=== PATIENT | male | born 1950 | race Caucasian/White ===

== ENCOUNTER 2018-02-03 00:01 | Inpatient (IN) ==
[2018-02-03] MEDS ORDERED: fentaNYL 10 mcg/mL Premix Drip 2,500 MCG/250 ML BAG IV.SIG PRN (04:43)
[2018-02-03] MEDS ORDERED: Acetaminophen 325 MG Tablet PO PRN (04:43)
[2018-02-03] MEDS ORDERED: Bisacodyl 10 MG Supp RECTAL PRN (04:43)
[2018-02-03] MEDS ORDERED: Midazolam 100 MG/100 ML Inj 100 MG/100 ML BAG IV.CONT PRN (04:43)
[2018-02-03] MEDS ORDERED: Vancomycin Consult Pharmacy OTHER PRN (04:48)
--- NOTE | 2018-02-03 04:53 | P.HPCC ---
History of Present Illness Primary Care Physician: UNKNOWN History of Present Illness: 67 unfortunate male who was brought via [facility] for vomiting to freestanding emergency department at [place]. According to [facility], the patient's brother called because patient has been having vomiting for the last 3days. When [facility] arrived in the patient was on bed, with low oxygen saturation, they put him on CPAP and brought into the ER. On arrival to the ER the patient was AMS, unable to give any history, no family at the bedside to give any information. The patient was intubated for airway protection by ED attending, the central line was placed into the femoral vein and the patient was started on IV fluid bolus resuscitation as well as antibiotics. He is being transferred to [facility] for higher level of care and critical care management. Inpatient Certification: I certify that the inpatient services were ordered in accordance with Medicare regulations governing the order. This includes certification that hospital inpatient services are reasonable and necessary and in the case of services not specified as inpatient-only under 42 CFR 419.22(n), that they are appropriately provided as inpatient services in accordance to with the 2-midnight benchmark under 43 CFR 412.3(e) Estimated Total Length of Stay (Days): 5 Plans for Post Hospital Care: Not yet determined Review of Systems unobtainable due to endotracheal tube PMFSH - History History Provided By: Conveyor Loader / EMT - Medical / Surgical Hx Neg / Unobtainable Medical Problems Denied: Unable to Obtain Surgical History: Unable to Obtain - Tobacco History Smoking Status: Unknown if ever smoked - Alcohol History How Often Do You Have a Drink Containing Alcohol: Unable to Obtain Medications and Allergies Active Medications: Active Medications Acetaminophen (Tylenol) 650 mg PO Q6H PRN PRN Reason: PAIN 1-10 AND/OR FEVER >101F Al Hydroxide/Mg Hydroxide (Milk Of Magnjoseph Liq) 30 ml PO Q12H PRN PRN Reason: Mild Constipation Albuterol (Duoneb Neb (Prn)) 1 ampul NEB Q2HR NEB PRN PRN Reason: WHEEZING Bisacodyl (Dulcolax Supp) 10 mg RECTAL DAILY PRN PRN Reason: SEVERE CONSITIPATION Chlorhexidine Gluconate (Peridex 0.12% Oral Kit) 15 ml OROPHARYNG BID@0800, 2000 [facility] Chlorhexidine Gluconate (Chlorhexidine 2% Cloth) 3 pack TOPICAL DAILY@0400 [facility] Stop: 02/09/18 03:59 Chlorhexidine Gluconate (Chlorhexidine 2% Cloth) 3 pack TOPICAL DAILY@0400 PRN PRN Reason: Extra cloth needed Stop: 02/09/18 03:59 Famotidine (Pepcid) 20 mg PO BID [facility] Famotidine (Pepcid Pf Inj) 20 mg IV.PUSH Q12HR JHONNY Famotidine (Pepcid Pf Inj) 20 mg IV.PUSH Q12HR [facility] Heparin Sodium (Porcine) (Heparin Inj) 5,000 units SQ Q8H [facility] Fentanyl (Fentanyl 10 Mcg/Ml Premix Drip) 2,500 mcg in 250 mls @ 5 mls/hr IV.SIG TITRATE PRN; Protocol PRN Reason: Per Protocol Midazolam HCl (Versed Inj) 100 mg in 100 mls @ 2 mls/hr IV.CONT TITRATE PRN; Protocol PRN Reason: See protocol Sodium Chloride (Ns Inj) 1,000 mls @ 154 mls/hr IV.CONT .Q6H30M [facility] Piperacillin/Tazobactam/Dextrose (Zosyn 4.5 Gm Premix) 4.5 gm in 100 mls @ 200 mls/hr IV.SIG Q6H JHONNY Sodium Chloride (Ns Inj) 1,000 mls @ 2,000 mls/hr IV.SIG Q30M [facility] Stop: 02/03/18 05:59 Lactulose (Lactulose Liq) 30 ml PO DAILY PRN PRN Reason: SEVERE CONSITIPATION Miscellaneous Medication () 1 each OROPHARYNG 0000,0400,1200,1600 [facility] Ondansetron HCl (Zofran Inj) 4 mg IV.PUSH Q6H PRN PRN Reason: NAUSEA OR VOMITING Pharmacy Profile Note (Vancomycin Consult Pharmacy) 1 each OTHER UNSCH PRN PRN Reason: Pharmacy to dose Senna/Docusate Sodium (Sonia-Colace) 1 tab PO BID [facility] Sennosides (Senokot) 17.2 mg PO Q12H PRN PRN Reason: Moderate Constipation Sodium Chloride (Ns Flush) 2 ml IV.FLUSH BID [facility] Sodium Chloride (Ns Flush) 2 ml IV.FLUSH PRN PRN PRN Reason: FLUSH AFTER USING IV ACCESS Allergies Allergy/AdvReac Type Severity Reaction Status Date / Time No Known Allergies Allergy Verified 12/09/18 00:53 Home Medications Medication Instructions Recorded Confirmed Type Unable to Obtain Home Meds 02/03/18 02/03/18 History Exam Vital signs: Intake & Output 02/02/18 02/02/18 02/03/18 06:59 18:59 06:59 Weight 76.1 kg Other: Weight On Admission 76.1 kg - Constitutional moderate distress, cachectic, chronically ill appearing, disheveled - Routine HEENT Exam Head: Present: normocephalic, atraumatic Eye: Present: PERRL ENT: Present: mucous membranes dry - Routine Neck Exam Present: supple, full ROM. Absent: JVD, carotid bruit - Routine Respiratory Exam Present: patient mechanically ventilated, rales. Absent: accessory muscle use, respiratory distress, rhonchi - Routine Cardiovascular Exam Present: RRR, S1, S2 - Routine Abdominal Exam Present: soft, normoactive bowel sounds. Absent: tenderness, distended - Routine Extremities Exam Absent: cyanosis, clubbing, edema - Routine Skin Exam Present: intact. Absent: cyanosis, erythema - Routine Neurological Exam Present: altered mental status Septic Shock Reassessment Septic shock perfusion: reassessment completed Caprini VTE Risk Assessment Caprini VTE Risk Assessment: Moderate/High Risk (score >= 2) Caprini Risk Assessment Model: Point Value = 1 Point Value = 2 Point Value = 3 Point Value = 5 Age 41-60 Minor surgery BMI > 25 kg/m2 Swollen legs Varicose veins or History of unexplained or recurrent spontaneous Oral contraceptives or hormone replacement Sepsis (< 1 month) Serious lung disease, including pneumonia (< 1 month) Abnormal pulmonary function Acute myocardial infarction Congestive heart failure (< 1 month) History of inflammatory bowel disease Medical patient at bed rest Age 61-74 Arthroscopic surgery Major open surgery (> 45 min) Laparoscopic surgery (> 45 min) Malignancy Confined to bed (> 72 hours) Immobilizing plaster cast Central venous access Age >= 75 History of VTE Family history of VTE Factor V Leiden Prothrombin [id number] Lupus anticoagulant Anticardiolipin antibodies Elevated serum homocysteine Heparin-induced thrombocytopenia Other congenital or acquired thrombophilia Stroke (< 1 month) Elective arthroplasty Hip, pelvis, or leg fracture Acute spinal cord injury (< 1 month) Prophylaxis Regimen: Total Risk Factor Score Risk Level Prophylaxis Regimen 0-1 Low Early ambulation 2 Moderate Order ONE of the following: *Sequential Compression Device (SCD) *Heparin 5000 units SQ BID 3-4 Higher Order ONE of the following medications: *Heparin 5000 units SQ TID *Enoxaparin/Lovenox 40 mg SQ daily (WT < 150 kg, CrCl > 30 mL/min) *Enoxaparin/Lovenox 30 mg SQ daily (WT < 150 kg, CrCl > 10-29 mL/min) *Enoxaparin/Lovenox 30 mg SQ BID (WT < 150 kg, CrCl > 30 mL/min) AND/OR *Sequential Compression Device (SCD) 5 or more Highest Order ONE of the following medications: *Heparin 5000 units SQ TID (Preferred with Epidurals) *Enoxaparin/Lovenox 40 mg SQ daily (WT < 150 kg, CrCl > 30 mL/min) *Enoxaparin/Lovenox 30 mg SQ daily (WT < 150 kg, CrCl > 10-29 mL/min) *Enoxaparin/Lovenox 30 mg SQ BID (WT < 150 kg, CrCl > 30 mL/min) AND *Sequential Compression Device (SCD) Assessment and Plan - Assessment and Plan Plan: Respiratory failure -SIRS/sepsis -Intubated for airway protection -Mechanical ventilation -No weaning until hemodynamically stable -DuoNeb's as needed scheduled -Vent bundle Sepsis -Unclear source/possibly urosepsis -Aggressive IV fluids hydration -Levophed and vasopressin as needed to keep map above 65 -Broad-spectrum antibiotic -Follow-up cultures Nausea vomiting -IV fluid hydration -Zofran PRN Acute kidney injury -IV fluid hydration -Strict I's and O's -Creatinine electrolyte levels -Ultrasound kidneys to rule out obstruction DVT GI prophylaxis -Teds SCDs -Subcu heparin -IV Pepcid 35 minutes of critical care H&P: Quality - VTE Deep Vein Thrombosis/Pulmonary Embolism Present on Admission: No
[2018-02-03] MEDS: Sod Chloride 0.9% Inj 1,000 ML IV.SIG SCH ×2 (05:29→06:57)
[2018-02-03] MEDS: Heparin - SQ 10,000 UNITS/ML Vial SQ SCH ×3 (05:31→22:34)
[2018-02-03 05:33] LABS: Baso % (Auto) 0.1 % (0.0-2.0); Hematocrit 28.9 % (39.0-51.0); Hemoglobin 9.6 gm/dL (13.0-17.0); Lymph # (Auto) 1.3 th/mm3 (1.0-4.8); Lymph % (Auto) 6.9 % (9.0-44.0); Mean Corpuscular HGB Conc 33.2 % (32.0-36.0); Mean Corpuscular Hemoglobin 30.9 pg (27.0-34.0); Mean Corpuscular Volume 92.9 fL (80.0-100.0); Mean Platelet Volume 8.1 fL (7.0-11.0); Mono # (Auto) 0.8 th/mm3 (0.0-0.9); Neut # (Auto) 16.8 th/mm3 (1.8-7.7); Platelet Count 307 th/mm3 (150-450); Red Blood Count 3.11 mil/mm3 (4.50-5.90); Red Cell Distribution Width 13.1 % (11.6-17.2); White Blood Count 18.9 th/mm3 (4.0-11.0)
[2018-02-03] MEDS ORDERED: Vasopressin Inj 40 UNIT in Sodium Chlor 0.9% Inj 98 ML IV.CONT SCH (06:00)
[2018-02-03] MEDS ORDERED: Vancomycin Inj 1,000 MG in Sodium Chlor 0.9% Inj 250 ML IV.SIG ONE (06:00)
[2018-02-03 06:10] LABS: ABG Base Excess 0.8 mmol/L (-2-2); ABG PCO2 26 mmHg (38-42); ABG PO2 177 mmHG (61-120)
[2018-02-03 06:38] LABS: Carbon Dioxide 25.9 meq/L (21.0-32.0); Potassium 3.2 meq/L (3.5-5.1)
[2018-02-03 06:39] LABS: Albumin 2.3 g/dL (3.4-5.0); Calcium 6.8 mg/dL (8.5-10.1); Magnesium 1.6 mg/dL (1.5-2.5); Phosphorus 2.2 mg/dL (2.5-4.9); Total Protein 5.6 g/dL (6.4-8.2)
[2018-02-03] MEDS: Sod Chloride 0.9% Inj 1,000 ML IV.CONT SCH ×2 (06:57→12:20)
[2018-02-03] MEDS ORDERED: Potassium Chlor 40 mEq Premix 40 MEQ/100 ML PIGGYBACK IV.SIG PRN (07:35)
[2018-02-03] MEDS ORDERED: Potassium Phosphate 500 MG Soluble Tablet PO PRN ×2 (07:35)
[2018-02-03] MEDS ORDERED: Potassium Chloride 25 MEQ Effervescent Tablet PO PRN (07:35)
[2018-02-03] MEDS ORDERED: Magnesium Sulfate Inj 4 GM in Sodium Chlor 0.9% Inj 92 ML IV.SIG PRN (07:35)
[2018-02-03] MEDS ORDERED: Magnesium Oxide 400 MG Tablet PO PRN (07:35)
[2018-02-03] MEDS ORDERED: Potassium Phosphate Inj 30 MMOL in Sodium Chlor 0.9% Inj 250 ML IV.SIG PRN (07:35)
[2018-02-03] MEDS ORDERED: Potassium Chlor 20 mEq Premix 20 MEQ/100 ML PIGGYBACK IV.SIG PRN ×2 (07:35)
[2018-02-03] MEDS ORDERED: Magnesium Sulfate Inj 2 GM in Sodium Chlor 0.9% Inj 96 ML IV.SIG PRN (07:35)
[2018-02-03] MEDS ORDERED: Sodium Phosphate Inj 30 MMOL in Sodium Chlor 0.9% Inj 250 ML IV.SIG PRN (07:35)
[2018-02-03] MEDS ORDERED: Dextrose 50% in Water 50 ML Vial IV.PUSH PRN (07:57)
[2018-02-03 08:15] LABS: ABG PCO2 36 mmHg (38-42); ABG PO2 88 mmHG (61-120)
--- NOTE | 2018-02-03 08:42 | CT ---
EXAM DATE: 02/03/2018 8:34 AM EST AGE/SEX: 67 years / Male INDICATIONS: Altered mental status. CLINICAL DATA: This is the patient's initial encounter. Patient reports that signs and symptoms have been present for 1 day and indicates a pain score of Nonresponsive. MEDICAL/SURGICAL HISTORY: Non-responsive. Non-responsive. RADIATION DOSE: 66.34 CTDI (mGy) COMPARISON: No prior exams available for comparison. TECHNIQUE: CT of the head without contrast. Using automated exposure control and adjustment of the mA and/or kV according to patient size, radiation dose was kept as low as reasonably achievable to ob tain optimal diagnostic quality images. DICOM format image data is available electronically for revi ew and comparison. FINDINGS: Cerebrum: The ventricles are normal for age. No evidence of midline shift, mass lesion, hemorrhage or acute infarction. No extraaxial fluid collections are seen. Mild hypodensity is identified in the cerebral white matter especially in the posterior watershed zon es. Posterior Fossa: The cerebellum and brainstem are intact. The 4th ventricle is midline. The cerebe llopontine angle is unremarkable. Extracranial: The visualized portion of the orbits is intact. Skull: The calvaria is intact. No evidence of skull fracture. CONCLUSION: 1. White matter hypodensity most characteristic of chronic ischemic white matter disease. 2. No evidence of acute infarct, hemorrhage, mass or edema. . Electronically signed by: William Williamson MD 02/03/2018 8:40 AM EST
--- NOTE | 2018-02-03 08:53 | CT ---
EXAM DATE: 02/03/2018 8:44 AM EST AGE/SEX: 67 years / Male INDICATIONS: Shortness of breath. CLINICAL DATA: This is the patient's initial encounter. Patient reports that signs and symptoms have been present for 1 day and indicates a pain score of Nonresponsive. MEDICAL/SURGICAL HISTORY: Non-responsive. Non-responsive. RADIATION DOSE: 5.27 CTDI (mGy) COMPARISON: No prior exams available for comparison. TECHNIQUE: Multiple contiguous axial images were obtained through the chest without contrast. Image s were obtained in suspended respiration using multiple row detector helical technique. Using automa william exposure control and adjustment of the mA and/or kV according to patient size, radiation dose was kept as low as reasonably achievable to obtain optimal diagnostic quality images. DICOM format imag e data is available electronically for review and comparison. FINDINGS: Lungs: Dense consolidating airspace disease with air bronchograms is identified throughout the left lower lobe. There is some minimal patchy airspace disease in both upper lobes. Tip of endotracheal tu be is at the level the ken. Mediastinum: There is good visualization of the great vessels of the middle mediastinum. No evidenc e of mediastinal or hilar adenopathy/mass. Moderate coronary artery calcifications noted. Pleurae: No evidence of focal thickening or pleural effusion. Axillae: Unremarkable. Bony Structures: Unremarkable. Miscellaneous: Tip of nasogastric tube is in the gastric antrum. CONCLUSION: 1. Dense consolidating airspace disease in the left lower lobe with minimal patchy airspace disease in the upper lobes. 2. Moderate coronary artery calcification. 3. Tip of endotracheal tube at the level the ken. 4. Tip of nasogastric tube in the gastric antrum. Electronically signed by: William Williamson MD 02/03/2018 8:51 AM EST
--- NOTE | 2018-02-03 08:56 | CT ---
EXAM DATE: 02/03/2018 8:43 AM EST AGE/SEX: 67 years / Male INDICATIONS: Nausea and vomiting. CLINICAL DATA: This is the patient's initial encounter. Patient reports that signs and symptoms have been present for 1 day and indicates a pain score of Nonresponsive. MEDICAL/SURGICAL HISTORY: Non-responsive. Non-responsive. RADIATION DOSE: 5.27 CTDI (mGy) COMPARISON: No prior exams available for comparison. TECHNIQUE: Multiple contiguous axial images were obtained through the abdomen. Images were obtained using multiple row detector helical technique. Using automated exposure control and adjustment of the mA and/or kV according to patient size, radiation dose was kept as low as reasonably achievable to o btain optimal diagnostic quality images. DICOM format image data is available electronically for rev iew and comparison. FINDINGS: Lower Lungs: The left lower lobe is densely consolidated. Liver: The liver has a homogeneous density without space-occupying lesion. There is no dilation of th e biliary tree. Spleen: Homogeneous density without enlargement. Pancreas: Unremarkable without mass or calcification. Kidneys: Mild perinephric stranding is noted. There is no evidence of hydronephrosis. Adrenal Glands: Unremarkable. Aorta: The aorta and proximal iliac vessels are grossly unremarkable without aneurysmal dilation. Bowel/Mesentery: Large fecal bolus with mild rectal wall thickening is noted. Intestinal tract is ot herwise unremarkable. There is no evidence of ileus or obstruction. Abdominal Wall: Intact. Retroperitoneum: No evidence of adenopathy in the retrocrural, para-aortic, or deep pelvic regions. Bladder: A Bowling catheter is identified. The bladder is decompressed. Reproductive Organs: No abnormal masses or calcifications seen. Inguinal: A right femoral central venous catheter is noted in place. Bony Structures: Unremarkable. CONCLUSION: 1. Dense consolidation of the left lower lobe 2. Rectal fecal impaction with rectal wall thickening 3. Bowling catheter and right femoral central venous catheter noted in place. 4. No evidence of obstruction. Electronically signed by: William Williamson MD 02/03/2018 8:55 AM EST
[2018-02-03] MEDS ORDERED: Famotidine PF Inj 20 MG/2 ML Vial IV.PUSH SCH (09:00)
[2018-02-03] MEDS ORDERED: Famotidine 20 MG Tablet PO SCH (09:00)
[2018-02-03] MEDS: Piperacil/Tazo 4.5 GM Premix 4.5 GM/100 ML BAG IV.SIG SCH ×3 (09:11→22:30)
[2018-02-03] MEDS: Senna/Docusate Sodium 8.6/50 MG Tablet PO SCH ×2 (09:11→22:35)
[2018-02-03] MEDS: Chlorhexidine 0.12% Oral Kit 15 ML UDC OROPHARYNG SCH (09:12)
[2018-02-03] MEDS: Famotidine PF Inj 20 MG/2 ML Vial IV.PUSH SCH ×2 (09:15→22:35)
--- NOTE | 2018-02-03 10:37 | US ---
EXAM DATE: 02/03/2018 10:25 AM EST AGE/SEX: 67 years / Male INDICATIONS: Increased BUN/Creatnine. CLINICAL DATA: This is the patient's initial encounter. Patient reports that signs and symptoms have been present for 1 day and indicates a pain score of Nonresponsive. MEDICAL/SURGICAL HISTORY: . Increased BUN/Creatnine. None. COMPARISON: [facility] [place], CT ABDOMEN & PELVIS W/O CONTRAST, 02/03/2018. . MEASUREMENTS: Right Kidney:__10.4 x 3.7 x 5.8 cm Left Kidney:__9.0 x 3.5 x 4.2 cm FINDINGS: Right Kidney: Increased echogenicity. No mass or hydronephrosis. Left Kidney: Increased echogenicity. No mass or hydronephrosis. Bladder: Bowling catheter is present. Bladder decompressed. Other: None. CONCLUSION: 1. Bilateral renal cortical thinning with increased echogenicity characteristic of chronic renal dis ease. 2. No evidence of hydronephrosis or mass. Electronically signed by: William Williamson MD 02/03/2018 10:35 AM EST
[2018-02-03] MEDS: Insulin NovoLIN Regular Correctional Sugar Inj SQ SCH ×4 (11:03→18:15)
[2018-02-03 11:06] LABS: Baso % (Auto) 0.1 % (0.0-2.0); Hematocrit 30.3 % (39.0-51.0); Hemoglobin 9.8 gm/dL (13.0-17.0); Lymph # (Auto) 1.5 th/mm3 (1.0-4.8); Lymph % (Auto) 10.2 % (9.0-44.0); Mean Corpuscular HGB Conc 32.4 % (32.0-36.0); Mean Corpuscular Volume 95.5 fL (80.0-100.0); Mean Platelet Volume 8.5 fL (7.0-11.0); Mono # (Auto) 0.6 th/mm3 (0.0-0.9); Mono % (Auto) 3.9 % (0.0-8.0); Neut # (Auto) 12.7 th/mm3 (1.8-7.7); Neut % (Auto) 85.8 % (16.0-70.0); Platelet Count 260 th/mm3 (150-450); Red Blood Count 3.18 mil/mm3 (4.50-5.90); Red Cell Distribution Width 13.5 % (11.6-17.2); White Blood Count 14.8 th/mm3 (4.0-11.0)
[2018-02-03 11:32] LABS: Albumin 2.3 g/dL (3.4-5.0); Carbon Dioxide 28.9 meq/L (21.0-32.0); Magnesium 1.5 mg/dL (1.5-2.5); Phosphorus 3.2 mg/dL (2.5-4.9); Potassium 3.6 meq/L (3.5-5.1); Total Protein 5.7 g/dL (6.4-8.2)
[2018-02-03] MEDS: Oral Hygiene Kit OROPHARYNG SCH ×2 (11:43→16:42)
--- NOTE | 2018-02-03 14:18 | P.DIET ---
Nutritional Evaluation Type of nutrition evaluation: initial Nutrition consult regarding: Tube Feeding Screening comments: 02/03 TF review Objective - Diagnosis septic shock - Objective Body Mass Index: 27.1 % IBW: 118 (IBW = 142lb) Body Weight Used for Calculations: Actual Energy Needs - Lower Range (kCal/kg): 22 Energy Needs - Upper Range (kCal/kg): 28 Lower Limit kCal/kg (kCals): 1,674 Upper Limit kCal/kg (kCals): 2,131 Lower Limit Protein Factor (Grams per Kg): 1.0 Upper Limit Protein Factor (Grams per Kg): 1.2 Lower Protein Needs (Protein): 76 Upper Protein Needs (Protein): 91 Dietitian Reviewed in Medical Record: Curent medications, Intake & Output, Labs , Medical history, Tube feeding Diet Order: TF'ing Objective Comments: PMH: unable to retrieve d/t pt AMS Lbas: BUN 26, Cr 1.31, GFR 54, POC glucose 220, Ca+ 7.0 Assessment Assessment: Pt intubated and on mech vent. Pt currently receiving Two Amos HN @ 55mL/hr per MD. RD to recommend Jevity 1.5 @ 55mL/hr to provide 1980kcal, 84g of protein, and 1003mL of free water to best meet pts nutritional needs. Continue to monitor TF tolerance. Monitor renal labs and medical course. Labs reviewed, dietitian following. Recommendations: 1. RD to recommend Jevity 1.5 @ 55mL/hr to best meet pts nutritional needs 2. Continue to monitor TF tolerance 3. Monitor renal labs and medical course 4. Dietitian following Dietitian to Monitor: Lab values, Renal labs, Glucose level, Intake & Output, Tube feeding tolerance, Medical course
--- NOTE | 2018-02-03 16:36 | P.CONGI ---
History of Present Illness Consult date: 02/03/18 Consult reason: Nausea and vomiting uncontrolled Chief complaint: septic shock History of Present Illness: This is a 67-year-old male who was brought to the ER with symptoms of uncontrolled nausea and vomiting. Onset of symptoms was for 3 days according to the record. Patient also had decreased oxygen saturation and was initially placed on CPAP but is now on ventilator support and currently being managed in the intensive care setting. CT scan showed large amount of stool in the colon with rectal impaction. Labs were reviewed hemoglobin 9.8, WBC count initially was 18.9 and is now decreased to 14.8, bilirubin and LFTs are normal. Gastroenterology was consulted to assist with patient's symptoms of nausea vomiting and assist with his plan of care. 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 - Medical / Surgical Hx Neg / Unobtainable Medical Problems Denied: Unable to Obtain - Tobacco History Smoking Status: Unknown if ever smoked - Alcohol History How Often Do You Have a Drink Containing Alcohol: Unable to Obtain <Kaley Braun - Last Filed: 02/03/18 16:26> Medications and Allergies Active Medications: Active Medications Acetaminophen (Tylenol) 650 mg PO Q6H PRN PRN Reason: PAIN 1-10 AND/OR FEVER >101F Al Hydroxide/Mg Hydroxide (Milk Of Garry Valenzuela) 30 ml PO Q12H PRN PRN Reason: Mild Constipation Albuterol (Duoneb Neb (Prn)) 1 ampul NEB Q2HR NEB PRN PRN Reason: WHEEZING Albuterol (Duoneb Neb (Andrew)) 1 ampul NEB Q6HR NEB ANDREW Last Admin: 02/03/18 14:40 Dose: 1 ampul Bisacodyl (Dulcolax Supp) 10 mg RECTAL DAILY PRN PRN Reason: SEVERE CONSITIPATION Chlorhexidine Gluconate (Peridex 0.12% Oral Kit) 15 ml OROPHARYNG BID@0800, 2000 [facility] Last Admin: 02/03/18 09:12 Dose: 15 ml Chlorhexidine Gluconate (Chlorhexidine 2% Cloth) 3 pack TOPICAL DAILY@0400 ANDREW Stop: 02/09/18 03:59 Chlorhexidine Gluconate (Chlorhexidine 2% Cloth) 3 pack TOPICAL DAILY@0400 PRN PRN Reason: Extra cloth needed Stop: 02/09/18 03:59 Dextrose (D50w Vial) 50 ml IV.PUSH UNSCH PRN PRN Reason: PER HYPOGLYCEMIA PROTOCOL Famotidine (Pepcid Pf Inj) [address] [facility] Last Admin: 02/03/18 09:15 Dose: 20 mg Glucagon (Glucagon Inj) 1 mg OTHER PRN PRN PRN Reason: for Hypoglycemia Protocol Heparin Sodium (Porcine) (Heparin Inj) 5,[address] [facility] Last Admin: 02/03/18 14:27 Dose: 5,000 units Fentanyl (Fentanyl 10 Mcg/Ml Premix Drip) 2,500 mcg in 250 mls @ 5 mls/hr IV.SIG TITRATE PRN; Protocol PRN Reason: Per Protocol Last Titration: 02/03/18 07:00 Dose: 0 mcg/hr, 0 mls/hr Midazolam HCl (Versed Inj) 100 mg in 100 mls @ 2 mls/hr IV.CONT TITRATE PRN; Protocol PRN Reason: See protocol Sodium Chloride (Ns Inj) 1,000 mls @ 75 mls/hr IV.CONT .[id number] [facility] Last Admin: 02/03/18 12:20 Dose: Not Given Piperacillin/Tazobactam/Dextrose (Zosyn 4.5 Gm Premix) 4.5 gm in 100 mls @ 200 mls/hr IV.SIG Q6H [facility] Last Admin: 02/03/18 14:27 Dose: 200 mls/hr Norepinephrine Bitartrate (Levophed-Dextrose 4 Mg/250 Ml Drip) 4 mg in 250 mls @ 7.5 mls/hr IV.SIG TITRATE PRN; Protocol PRN Reason: Per Protocol Last Admin: 02/03/18 11:46 Dose: 4 mcg/min, 15 mls/hr Vasopressin 40 unit/ Sodium (Chloride) 100 mls @ 1.5 mls/hr IV.CONT CONT ANDREW; Protocol Magnesium Sulfate 4 gm/ Sodium (Chloride) 100 mls @ 50 mls/hr IV.SIG UNSCH PRN PRN Reason: For Magnesium 0.9 - 1.1 mg/dL Magnesium Sulfate 2 gm/ Sodium (Chloride) 100 mls @ 50 mls/hr IV.SIG UNSCH PRN PRN Reason: For Magnesium 1.2 - 1.6 mg/dL Potassium Chloride (Kcl 40 Meq Premix Inj) 40 meq in 100 mls @ 25 mls/hr IV.SIG Q2H PRN PRN Reason: For Potassium 2.8 - 3.2 mEq/L Potassium Chloride (Kcl 20 Meq Premix Inj) 20 meq in 100 mls @ 50 mls/hr IV.SIG Q2H PRN PRN Reason: For Potassium 3.3 - 3.5 mEq/L Potassium Chloride (Kcl 40 Meq Premix Inj) 40 meq in 100 mls @ 25 mls/hr IV.SIG UNSCH PRN PRN Reason: For Potassium 3.3 - 3.5 mEq/L Potassium Chloride (Kcl 20 Meq Premix Inj) 20 meq in 100 mls @ 50 mls/hr IV.SIG Q2H PRN PRN Reason: For Potassium 2.8 - 3.2 mEq/L Potassium Phosphate 30 mmol/ (Sodium Chloride) 260 mls @ 42 mls/hr IV.SIG UNSCH PRN PRN Reason: SEE LABEL COMMENTS Last Admin: 02/03/18 09:00 Dose: 42 mls/hr Sodium Phosphate 30 mmol/ (Sodium Chloride) 260 mls @ 42 mls/hr IV.SIG UNSCH PRN PRN Reason: For Phosphorus < 2.5 mg/dL Insulin Human Regular (Novolin R Correctional Sugar Inj) 0 units SQ Q4HR ANDREW; Protocol Last Admin: 02/03/18 14:26 Dose: 4 units Lactulose (Lactulose Liq) 30 ml PO DAILY PRN PRN Reason: SEVERE CONSITIPATION Magnesium Oxide (Mag-Ox) 800 mg PO UNSCH PRN PRN Reason: For Magnesium 1.2 - 1.6 mg/dL Miscellaneous Medication () 1 each OROPHARYNG 0000,0400,1200,1600 [facility] Last Admin: 02/03/18 11:43 Dose: 1 each Ondansetron HCl (Zofran Inj) 4 mg IV.PUSH Q6H PRN PRN Reason: NAUSEA OR VOMITING Pharmacy Profile Note (Vancomycin Consult Pharmacy) 1 each OTHER UNSCH PRN PRN Reason: Pharmacy to dose Potassium Bicarb/Potassium Chloride (K-Lyte Cl Eff) 50 meq PO UNSCH PRN PRN Reason: For Potassium 3.3 - 3.5 mEq/L Potassium Phosphate (K-Phos Original) 2,000 mg PO Q4H PRN PRN Reason: Phosphorus Less Than 2.5 mg/dL Potassium Phosphate (K-Phos Original) 2,000 mg PO UNSCH PRN PRN Reason: SEE LABEL COMMENTS Senna/Docusate Sodium (Sonia-Colace) [address] [facility] Last Admin: 02/03/18 09:11 Dose: 1 tab Sennosides (Senokot) 17.2 mg PO Q12H PRN PRN Reason: Moderate Constipation Sodium Chloride (Ns Flush) [address] [facility] Last Admin: 02/03/18 09:12 Dose: 2 ml Sodium Chloride (Ns Flush) 2 ml IV.FLUSH PRN PRN PRN Reason: FLUSH AFTER USING IV ACCESS Terbutaline Sulfate (Brethine Inj) 1 mg SQ UNSCH PRN PRN Reason: For Extravasation <Kaley Braun - Last Filed: 02/03/18 16:26> Active Medications: Active Medications Acetaminophen (Tylenol) 650 mg PO Q6H PRN PRN Reason: PAIN 1-10 AND/OR FEVER >101F Al Hydroxide/Mg Hydroxide (Milk Of Magnesia Liq) 30 ml PO Q12H PRN PRN Reason: Mild Constipation Albuterol (Duoneb Neb (Prn)) 1 ampul NEB Q2HR NEB PRN PRN Reason: WHEEZING Albuterol (Duoneb Neb (Andrew)) 1 amp[address]B Q6HR [address] [facility] Last Admin: 02/04/18 02:44 Dose: 1 ampul Bisacodyl (Dulcolax Supp) 10 mg RECTAL DAILY PRN PRN Reason: SEVERE CONSITIPATION Chlorhexidine Gluconate (Peridex 0.12% Oral Kit) 15 ml OROPHARYNG BID@0800, 2000 [facility] Last Admin: 02/04/18 04:29 Dose: 15 ml Chlorhexidine Gluconate (Chlorhexidine 2% Cloth) 3 pack TOPICAL DAILY@0400 [facility] Stop: 02/09/18 03:59 Chlorhexidine Gluconate (Chlorhexidine 2% Cloth) 3 pack TOPICAL DAILY@0400 PRN PRN Reason: Extra cloth needed Stop: 02/09/18 03:59 Dextrose (D50w Vial) 50 ml IV.PUSH UNSCH PRN PRN Reason: PER HYPOGLYCEMIA PROTOCOL Famotidine (Pepcid Pf Inj) [address] [facility] Last Admin: 02/03/18 22:35 Dose: 20 mg Glucagon (Glucagon Inj) 1 mg OTHER PRN PRN PRN Reason: for Hypoglycemia Protocol Heparin Sodium (Porcine) (Heparin Inj) 5,[address] [facility] Last Admin: 02/03/18 22:34 Dose: 5,000 units Fentanyl (Fentanyl 10 Mcg/Ml Premix Drip) 2,500 mcg in 250 mls @ 5 mls/hr IV.SIG TITRATE PRN; Protocol PRN Reason: Per Protocol Last Titration: 02/03/18 07:00 Dose: 0 mcg/hr, 0 mls/hr Midazolam HCl (Versed Inj) 100 mg in 100 mls @ 2 mls/hr IV.CONT TITRATE PRN; Protocol PRN Reason: See protocol Sodium Chloride (Ns Inj) 1,000 mls @ 75 mls/hr IV.CONT .[id number] [facility] Last Admin: 02/03/18 12:20 Dose: Not Given Piperacillin/Tazobactam/Dextrose (Zosyn 4.5 Gm Premix) 4.5 gm in 100 mls @ 200 mls/hr IV.SIG Q6H [facility] Last Admin: 02/04/18 04:28 Dose: 200 mls/hr Norepinephrine Bitartrate (Levophed-Dextrose 4 Mg/250 Ml Drip) 4 mg in 250 mls @ 7.5 mls/hr IV.SIG TITRATE PRN; Protocol PRN Reason: Per Protocol Last Admin: 02/03/18 11:46 Dose: 4 mcg/min, 15 mls/hr Vasopressin 40 unit/ Sodium (Chloride) 100 mls @ 1.5 mls/hr IV.CONT CONT [facility]; Protocol Magnesium Sulfate 4 gm/ Sodium (Chloride) 100 mls @ 50 mls/hr IV.SIG UNSCH PRN PRN Reason: For Magnesium 0.9 - 1.1 mg/dL Magnesium Sulfate 2 gm/ Sodium (Chloride) 100 mls @ 50 mls/hr IV.SIG UNSCH PRN PRN Reason: For Magnesium 1.2 - 1.6 mg/dL Potassium Chloride (Kcl 40 Meq Premix Inj) 40 meq in 100 mls @ 25 mls/hr IV.SIG Q2H PRN PRN Reason: For Potassium 2.8 - 3.2 mEq/L Potassium Chloride (Kcl 20 Meq Premix Inj) 20 meq in 100 mls @ 50 mls/hr IV.SIG Q2H PRN PRN Reason: For Potassium 3.3 - 3.5 mEq/L Potassium Chloride (Kcl 40 Meq Premix Inj) 40 meq in 100 mls @ 25 mls/hr IV.SIG UNSCH PRN PRN Reason: For Potassium 3.3 - 3.5 mEq/L Potassium Chloride (Kcl 20 Meq Premix Inj) 20 meq in 100 mls @ 50 mls/hr IV.SIG Q2H PRN PRN Reason: For Potassium 2.8 - 3.2 mEq/L Potassium Phosphate 30 mmol/ (Sodium Chloride) 260 mls @ 42 mls/hr IV.SIG UNSCH PRN PRN Reason: SEE LABEL COMMENTS Last Infusion: 02/03/18 15:15 Dose: Infused Sodium Phosphate 30 mmol/ (Sodium Chloride) 260 mls @ 42 mls/hr IV.SIG UNSCH PRN PRN Reason: For Phosphorus < 2.5 mg/dL Insulin Human Regular (Novolin R Correctional Sugar Inj) 0 units SQ Q4HR ANDREW; Protocol Last Admin: 02/04/18 04:27 Dose: 7 units Lactulose (Lactulose Liq) 30 ml PO DAILY PRN PRN Reason: SEVERE CONSITIPATION Magnesium Oxide (Mag-Ox) 800 mg PO UNSCH PRN PRN Reason: For Magnesium 1.2 - 1.6 mg/dL Miscellaneous Medication () 1 each OROPHARYNG 0000,0400,1200,1600 [facility] Last Admin: 02/04/18 04:29 Dose: 1 each Ondansetron HCl (Zofran Inj) 4 mg IV.PUSH Q6H PRN PRN Reason: NAUSEA OR VOMITING Pharmacy Profile Note (Vancomycin Consult Pharmacy) 1 each OTHER UNSCH PRN PRN Reason: Pharmacy to dose Potassium Bicarb/Potassium Chloride (K-Lyte Cl Eff) 50 meq PO UNSCH PRN PRN Reason: For Potassium 3.3 - 3.5 mEq/L Potassium Phosphate (K-Phos Original) 2,000 mg PO Q4H PRN PRN Reason: Phosphorus Less Than 2.5 mg/dL Potassium Phosphate (K-Phos Original) 2,000 mg PO UNSCH PRN PRN Reason: SEE LABEL COMMENTS Senna/Docusate Sodium (Sonia-Colace) [address] [facility] Last Admin: 02/03/18 22:35 Dose: 1 tab Sennosides (Senokot) 17.2 mg PO Q12H PRN PRN Reason: Moderate Constipation Sodium Chloride (Ns Flush) [address] [facility] Last Admin: 02/04/18 04:29 Dose: 2 ml Sodium Chloride (Ns Flush) 2 ml IV.FLUSH PRN PRN PRN Reason: FLUSH AFTER USING IV ACCESS Terbutaline Sulfate (Brethine Inj) 1 mg SQ UNSCH PRN PRN Reason: For Extravasation <Paola Turner - Last Filed: 02/04/18 05:42> Allergies Allergy/AdvReac Type Severity Reaction Status Date / Time No Known Allergies Allergy Verified 02/03/18 00:53 Home Medications Medication Instructions Recorded Confirmed Type Unable to Obtain Home Meds 02/03/18 02/03/18 History Exam Vital signs: Vital Signs 02/03/18 04:00 02/03/18 05:00 02/03/18 06:00 Temperature 97.8 F Pulse Rate 99 H 98 H Respiratory Rate 20 20 20 Blood Pressure 112/71 129/57 L Pulse Oximetry 100 100 100 02/03/18 07:00 02/03/18 08:00 02/03/18 08:12 Temperature 98.2 F Pulse Rate 113 H 121 H 88 Respiratory Rate 14 14 Blood Pressure 70/46 L Pulse Oximetry 98 02/03/18 08:14 02/03/18 09:00 02/03/18 10:00 Temperature Pulse Rate 100 H 119 H 117 H Respiratory Rate 24 15 15 Blood Pressure 98/55 L 91/55 L Pulse Oximetry 100 02/03/18 11:00 02/03/18 11:15 02/03/18 12:00 Temperature 98.3 F Pulse Rate 120 H 115 H Respiratory Rate 14 14 14 Blood Pressure 87/50 L 88/55 L Pulse Oximetry 100 02/03/18 13:00 02/03/18 14:00 02/03/18 14:41 Temperature Pulse Rate 115 H 115 H 114 H Respiratory Rate 15 14 12 Blood Pressure 88/54 L 88/50 L Pulse Oximetry 100 02/03/18 15:00 Temperature Pulse Rate 114 H Respiratory Rate 16 Blood Pressure 87/54 L Pulse Oximetry Intake & Output 02/02/18 02/03/18 02/03/18 18:59 06:59 18:59 Intake Total 1000 / 1000 350 / 350 Output Total 100 / 100 Balance 900 / 900 350 / 350 Weight 76.1 kg Intake: IV 1000 / 1000 350 / 350 Levophed-Dextrose 4 mg/250 ml 250 / 250 Drip 4 mg In 250 ml @ 2 MCG/MIN 7.5 mls/hr IV.SIG TITRATE PRN Rx#:[id number] Zosyn 4.5 GM Premix 4.5 gm In 100 / 100 100 ml @ 200 mls/hr IV.SIG Q6H ANDREW Rx#:[id number] NS Inj 1,000 ML @ 2000 mls/hr 1000 / 1000 IV.SIG Q30M ANDREW Rx#:[id number] Output: Urine Amount (Catheter) 100 / 100 Indwelling Urethral Catheter 100 / 100 Other: # Bowel Movements 0 Weight On Admission 76.1 kg - Constitutional moderate distress, chronically ill appearing, obtunded - Routine HEENT Exam Head: Present: normocephalic ENT: Present: mucous membranes dry - Routine Neck Exam Present: supple (ET tube) - Routine Respiratory Exam Present: patient mechanically ventilated, distant breath sounds - Routine Cardiovascular Exam Present: S1, S2 (Distant) - Routine Abdominal Exam Present: distended (taut, soft but minimal bowel sounds) - Routine Skin Exam Present: pallor (Dry) - Routine Neurological Exam Present: altered mental status <Kaley Braun - Last Filed: 02/03/18 16:26> Vital signs: Vital Signs 02/03/18 06:00 02/03/18 07:00 02/03/18 08:00 Temperature 97.8 F 98.2 F Pulse Rate 98 H 113 H 121 H Respiratory Rate 20 14 Blood Pressure 129/57 L 70/46 L Pulse Oximetry 100 98 02/03/18 08:12 02/03/18 08:14 02/03/18 09:00 Temperature Pulse Rate 88 100 H 119 H Respiratory Rate 14 24 15 Blood Pressure 98/55 L Pulse Oximetry 100 02/03/18 10:00 02/03/18 11:00 02/03/18 11:15 Temperature Pulse Rate 117 H 120 H Respiratory Rate 15 14 14 Blood Pressure 91/55 L 87/50 L Pulse Oximetry 100 02/03/18 12:00 02/03/18 13:00 02/03/18 14:00 Temperature 98.3 F Pulse Rate 115 H 115 H 115 H Respiratory Rate 14 15 14 Blood Pressure 88/55 L 88/54 L 88/50 L Pulse Oximetry 02/03/18 14:41 02/03/18 15:00 02/03/18 16:00 Temperature 98.1 F Pulse Rate 114 H 114 H 114 H Respiratory Rate 12 16 17 Blood Pressure 87/54 L 91/53 L Pulse Oximetry 100 02/03/18 17:00 02/03/18 18:00 02/03/18 19:00 Temperature Pulse Rate 112 H 111 H 113 H Respiratory Rate 18 15 14 Blood Pressure 96/55 L 94/52 L 101/54 L Pulse Oximetry 100 02/03/18 19:41 02/03/18 20:00 02/03/18 21:00 Temperature 97.2 F L Pulse Rate 115 H 114 H 114 H Respiratory Rate 14 16 18 Blood Pressure 101/54 L 100/58 L Pulse Oximetry 100 98 96 02/03/18 22:00 02/03/18 23:13 02/04/18 02:44 Temperature 97.2 F L Pulse Rate 113 H 120 H Respiratory Rate 18 16 15 Blood Pressure 103/58 L Pulse Oximetry 98 100 02/04/18 03:29 Temperature Pulse Rate Respiratory Rate 14 Blood Pressure Pulse Oximetry 99 Intake & Output 02/03/18 02/03/18 02/04/18 06:59 18:59 06:59 Intake Total 1000 / 1000 910 / 910 100 / 100 Output Total 100 / 100 850 / 850 Balance 900 / 900 60 / 60 100 / 100 Weight 76.1 kg Intake: IV 1000 / 1000 710 / 710 100 / 100 Levophed-Dextrose 4 mg/250 ml 250 / 250 Drip 4 mg In 250 ml @ 2 MCG/MIN 7.5 mls/hr IV.SIG TITRATE PRN Rx#:[id number] Zosyn 4.5 GM Premix 4.5 gm In 200 / 200 100 / 100 100 ml @ 200 mls/hr IV.SIG Q6H ANDREW Rx#:[id number] Potassium Phosphate Inj 30 MMOL 260 / 260 In NS Inj 250 ML @ 42 mls/hr IV.SIG UNSCH PRN Rx#:[id number] NS Inj 1,000 ML @ 2000 mls/hr 1000 / 1000 IV.SIG Q30M ANDREW Rx#:[id number] Tube Feeding 200 / 200 Output: Urine Amount (Catheter) 100 / 100 450 / 450 Indwelling Urethral Catheter 100 / 100 450 / 450 Gastric Drainage 400 / 400 Orogastric Tube 400 / 400 Other: Date of Last Bowel Movement 02/03/18 02/03/18 # Bowel Movements 0 1 Weight On Admission 76.1 kg <[email or web address] - Last Filed: 02/04/18 05:42> Results - Labs CBC & Chem 7: 02/03/18 10:24 02/03/18 10:24 Labs: Laboratory Results - last 24 hr 02/03/18 02/03/18 02/03/18 04:00 05:17 05:17 WBC 18.9 H RBC 3.11 L Hgb 9.6 L D Hct 28.9 L MCV 92.9 D MCH 30.9 MCHC 33.2 RDW 13.1 Plt Count 307 D MPV 8.1 Neut % (Auto) 89.0 H Lymph % (Auto) 6.9 L [place] % (Auto) 4.0 Eos % (Auto) 0.0 Baso % (Auto) 0.1 Neut # (Auto) 16.8 H Lymph # (Auto) 1.3 [place] # (Auto) 0.8 Eos # (Auto) 0.0 Baso # (Auto) 0.0 WBC Differential . Differential Comment Auto diff final APTT 27.8 D Puncture Site Patient Temperature O2 Saturation ABG pH ABG pCO2 ABG pO2 ABG HCO3 ABG O2 Content ABG Base Excess ABG Methemoglobin Dylan Test Hemoglobin Carboxyhemoglobin O2 Delivery Device Vent Setting Inspired O2 Critical Value Sodium Potassium Chloride Carbon Dioxide Anion Gap BUN Creatinine Estimated GFR POC Glucose Random Glucose Lactic Acid Calcium Calcium Adj for Albumin Phosphorus Magnesium Total Bilirubin AST ALT Alkaline Phosphatase Total Protein Albumin Nasal Screen MRSA (PCR) Not detected 02/03/18 02/03/18 02/03/18 05:17 05:17 05:59 WBC RBC Hgb Hct MCV MCH MCHC RDW Plt Count MPV Neut % (Auto) Lymph % (Auto) [place] % (Auto) Eos % (Auto) Baso % (Auto) Neut # (Auto) Lymph # (Auto) [place] # (Auto) Eos # (Auto) Baso # (Auto) WBC Differential Differential Comment APTT Puncture Site Right brachial Patient Temperature 98.6 O2 Saturation 96 ABG pH 7.55 H* ABG pCO2 26 L ABG pO2 177 H ABG HCO3 23 ABG O2 Content 13.1 ABG Base Excess 0.8 ABG Methemoglobin 2.2 H Dylan Test Hemoglobin 9.4 L Carboxyhemoglobin 0.6 O2 Delivery Device Ventilator Vent Setting Ac20/500/5peep Inspired O2 60 Critical Value Yes Sodium 140 Potassium 3.2 L Chloride 101 D Carbon Dioxide 25.9 Anion Gap 13 BUN 26 H Creatinine 1.31 H Estimated GFR 54 L POC Glucose Random Glucose 253 H Lactic Acid 2.2 H Calcium 6.8 L* D Calcium Adj for Albumin 8.2 L Phosphorus 2.2 L Magnesium 1.6 Total Bilirubin 0.5 AST 11 L ALT 16 Alkaline Phosphatase 97 Total Protein 5.6 L D Albumin 2.3 L Nasal Screen MRSA (PCR) 02/03/18 02/03/18 02/03/18 08:10 09:20 10:24 WBC 14.8 H RBC 3.18 L Hgb 9.8 L Hct 30.3 L MCV 95.5 MCH 31.0 MCHC 32.4 RDW 13.5 Plt Count 260 MPV 8.5 Neut % (Auto) 85.8 H Lymph % (Auto) 10.2 [place] % (Auto) 3.9 Eos % (Auto) 0.0 Baso % (Auto) 0.1 Neut # (Auto) 12.7 H Lymph # (Auto) 1.5 [place] # (Auto) 0.6 Eos # (Auto) 0.0 Baso # (Auto) 0.0 WBC Differential . Differential Comment Auto diff final APTT Puncture Site Right radial Patient Temperature 98.6 O2 Saturation 94 ABG pH 7.47 H ABG pCO2 36 L ABG pO2 88 ABG HCO3 26 ABG O2 Content 11.9 L ABG Base Excess 2.0 ABG Methemoglobin 1.5 Dylan Test Present Hemoglobin 8.9 L Carboxyhemoglobin 0.0 O2 Delivery Device Ventilator Vent Setting Ac14/450/+5 Inspired O2 40 Critical Value No Sodium Potassium Chloride Carbon Dioxide Anion Gap BUN Creatinine Estimated GFR POC Glucose 220 H Random Glucose Lactic Acid Calcium Calcium Adj for Albumin Phosphorus Magnesium Total Bilirubin AST ALT Alkaline Phosphatase Total Protein Albumin Nasal Screen MRSA (PCR) 02/03/18 10:24 WBC RBC Hgb Hct MCV MCH MCHC RDW Plt Count MPV Neut % (Auto) Lymph % (Auto) [place] % (Auto) Eos % (Auto) Baso % (Auto) Neut # (Auto) Lymph # (Auto) [place] # (Auto) Eos # (Auto) Baso # (Auto) WBC Differential Differential Comment APTT Puncture Site Patient Temperature O2 Saturation ABG pH ABG pCO2 ABG pO2 ABG HCO3 ABG O2 Content ABG Base Excess ABG Methemoglobin Dylan Test Hemoglobin Carboxyhemoglobin O2 Delivery Device Vent Setting Inspired O2 Critical Value Sodium 142 Potassium 3.6 Chloride 104 Carbon Dioxide 28.9 Anion Gap 9 BUN 26 H Creatinine 1.31 H Estimated GFR 54 L POC Glucose Random Glucose 231 H Lactic Acid Calcium 7.0 L* Calcium Adj for Albumin 8.4 L Phosphorus 3.2 D Magnesium 1.5 Total Bilirubin 0.5 AST 11 L ALT 15 Alkaline Phosphatase 93 Total Protein 5.7 L Albumin 2.3 L Nasal Screen MRSA (PCR) - Imaging Impressions Abdomen/Bladder Ultrasound 02/03/18 00:00 CONCLUSION: 1. Bilateral renal cortical thinning with increased echogenicity characteristic of chronic renal disease. 2. No evidence of hydronephrosis or mass. Abdomen/Pelvis CT 02/03/18 08:04 CONCLUSION: 1. Dense consolidation of the left lower lobe 2. Rectal fecal impaction with rectal wall thickening 3. Bowling catheter and right femoral central venous catheter noted in place. 4. No evidence of obstruction. Head CT 02/03/18 08:04 CONCLUSION: 1. White matter hypodensity most characteristic of chronic ischemic white matter disease. 2. No evidence of acute infarct, hemorrhage, mass or edema. . Chest CT 02/03/18 08:05 CONCLUSION: 1. Dense consolidating airspace disease in the left lower lobe with minimal patchy airspace disease in the upper lobes. 2. Moderate coronary artery calcification. 3. Tip of endotracheal tube at the level the ken. 4. Tip of nasogastric tube in the gastric antrum. <Kaley Braun - Last Filed: 02/03/18 16:26> - Labs CBC & Chem 7: 02/03/18 10:24 12/09/18 18:43 Labs: Laboratory Results - last 24 hr 02/03/18 02/03/18 02/03/18 04:00 05:17 05:17 WBC 18.9 H RBC 3.11 L Hgb 9.6 L D Hct 28.9 L MCV 92.9 D MCH 30.9 MCHC 33.2 RDW 13.1 Plt Count 307 D MPV 8.1 Neut % (Auto) 89.0 H Lymph % (Auto) 6.9 L [place] % (Auto) 4.0 Eos % (Auto) 0.0 Baso % (Auto) 0.1 Neut # (Auto) 16.8 H Lymph # (Auto) 1.3 [place] # (Auto) 0.8 Eos # (Auto) 0.0 Baso # (Auto) 0.0 WBC Differential . Differential Comment Auto diff final APTT 27.8 D Puncture Site Patient Temperature O2 Saturation ABG pH ABG pCO2 ABG pO2 ABG HCO3 ABG O2 Content ABG Base Excess ABG Methemoglobin Dylan Test Hemoglobin Carboxyhemoglobin O2 Delivery Device Vent Setting Inspired O2 Critical Value Sodium Potassium Chloride Carbon Dioxide Anion Gap BUN Creatinine Estimated GFR POC Glucose Random Glucose Lactic Acid Calcium Calcium Adj for Albumin Phosphorus Magnesium Total Bilirubin AST ALT Alkaline Phosphatase Total Protein Albumin Nasal Screen MRSA (PCR) Not detected 02/03/18 02/03/18 02/03/18 05:17 05:17 05:59 WBC RBC Hgb Hct MCV MCH MCHC RDW Plt Count MPV Neut % (Auto) Lymph % (Auto) [place] % (Auto) Eos % (Auto) Baso % (Auto) Neut # (Auto) Lymph # (Auto) [place] # (Auto) Eos # (Auto) Baso # (Auto) WBC Differential Differential Comment APTT Puncture Site Right brachial Patient Temperature 98.6 O2 Saturation 96 ABG pH 7.55 H* ABG pCO2 26 L ABG pO2 177 H ABG HCO3 23 ABG O2 Content 13.1 ABG Base Excess 0.8 ABG Methemoglobin 2.2 H Dylan Test Hemoglobin 9.4 L Carboxyhemoglobin 0.6 O2 Delivery Device Ventilator Vent Setting Ac20/500/5peep Inspired O2 60 Critical Value Yes Sodium 140 Potassium 3.2 L Chloride 101 D Carbon Dioxide 25.9 Anion Gap 13 BUN 26 H Creatinine 1.31 H Estimated GFR 54 L POC Glucose Random Glucose 253 H Lactic Acid 2.2 H Calcium 6.8 L* D Calcium Adj for Albumin 8.2 L Phosphorus 2.2 L Magnesium 1.6 Total Bilirubin 0.5 AST 11 L ALT 16 Alkaline Phosphatase 97 Total Protein 5.6 L D Albumin 2.3 L Nasal Screen MRSA (PCR) 02/03/18 02/03/18 02/03/18 08:10 09:20 10:24 WBC 14.8 H RBC 3.18 L Hgb 9.8 L Hct 30.3 L MCV 95.5 MCH 31.0 MCHC 32.4 RDW 13.5 Plt Count 260 MPV 8.5 Neut % (Auto) 85.8 H Lymph % (Auto) 10.2 [place] % (Auto) 3.9 Eos % (Auto) 0.0 Baso % (Auto) 0.1 Neut # (Auto) 12.7 H Lymph # (Auto) 1.5 [place] # (Auto) 0.6 Eos # (Auto) 0.0 Baso # (Auto) 0.0 WBC Differential . Differential Comment Auto diff final APTT Puncture Site Right radial Patient Temperature 98.6 O2 Saturation 94 ABG pH 7.47 H ABG pCO2 36 L ABG pO2 88 ABG HCO3 26 ABG O2 Content 11.9 L ABG Base Excess 2.0 ABG Methemoglobin 1.5 Dylan Test Present Hemoglobin 8.9 L Carboxyhemoglobin 0.0 O2 Delivery Device Ventilator Vent Setting [id number]/450/+5 Inspired O2 40 Critical Value No Sodium Potassium Chloride Carbon Dioxide Anion Gap BUN Creatinine Estimated GFR POC Glucose 220 H Random Glucose Lactic Acid Calcium Calcium Adj for Albumin Phosphorus Magnesium Total Bilirubin AST ALT Alkaline Phosphatase Total Protein Albumin Nasal Screen MRSA (PCR) 02/03/18 02/03/18 02/03/18 10:24 18:02 18:43 WBC RBC Hgb Hct MCV MCH MCHC RDW Plt Count MPV Neut % (Auto) Lymph % (Auto) [place] % (Auto) Eos % (Auto) Baso % (Auto) Neut # (Auto) Lymph # (Auto) [place] # (Auto) Eos # (Auto) Baso # (Auto) WBC Differential Differential Comment APTT Puncture Site Patient Temperature O2 Saturation ABG pH ABG pCO2 ABG pO2 ABG HCO3 ABG O2 Content ABG Base Excess ABG Methemoglobin Dylan Test Hemoglobin Carboxyhemoglobin O2 Delivery Device Vent Setting Inspired O2 Critical Value Sodium 142 Potassium 3.6 4.0 Chloride 104 Carbon Dioxide 28.9 Anion Gap 9 BUN 26 H Creatinine 1.31 H Estimated GFR 54 L POC Glucose 163 H Random Glucose 231 H Lactic Acid Calcium 7.0 L* Calcium Adj for Albumin 8.4 L Phosphorus 3.2 D 3.4 Magnesium 1.5 Total Bilirubin 0.5 AST 11 L ALT 15 Alkaline Phosphatase 93 Total Protein 5.7 L Albumin 2.3 L Nasal Screen MRSA (PCR) 02/03/18 02/04/18 20:42 03:45 WBC RBC Hgb Hct MCV MCH MCHC RDW Plt Count MPV Neut % (Auto) Lymph % (Auto) [place] % (Auto) Eos % (Auto) Baso % (Auto) Neut # (Auto) Lymph # (Auto) [place] # (Auto) Eos # (Auto) Baso # (Auto) WBC Differential Differential Comment APTT Puncture Site Patient Temperature O2 Saturation ABG pH ABG pCO2 ABG pO2 ABG HCO3 ABG O2 Content ABG Base Excess ABG Methemoglobin Dylan Test Hemoglobin Carboxyhemoglobin O2 Delivery Device Vent Setting Inspired O2 Critical Value Sodium Potassium Chloride Carbon Dioxide Anion Gap BUN Creatinine Estimated GFR POC Glucose 138 H 256 H Random Glucose Lactic Acid Calcium Calcium Adj for Albumin Phosphorus Magnesium Total Bilirubin AST ALT Alkaline Phosphatase Total Protein Albumin Nasal Screen MRSA (PCR) - Imaging Impressions Abdomen/Bladder Ultrasound 02/03/18 00:00 CONCLUSION: 1. Bilateral renal cortical thinning with increased echogenicity characteristic of chronic renal disease. 2. No evidence of hydronephrosis or mass. Abdomen/Pelvis CT 02/03/18 08:04 CONCLUSION: 1. Dense consolidation of the left lower lobe 2. Rectal fecal impaction with rectal wall thickening 3. Bowling catheter and right femoral central venous catheter noted in place. 4. No evidence of obstruction. Head CT 02/03/18 08:04 CONCLUSION: 1. White matter hypodensity most characteristic of chronic ischemic white matter disease. 2. No evidence of acute infarct, hemorrhage, mass or edema. . Chest CT 02/03/18 08:05 CONCLUSION: 1. Dense consolidating airspace disease in the left lower lobe with minimal patchy airspace disease in the upper lobes. 2. Moderate coronary artery calcification. 3. Tip of endotracheal tube at the level the ken. 4. Tip of nasogastric tube in the gastric antrum. <Paola Turner - Last Filed: 02/04/18 05:42> Assessment and Plan - Plan Intractable nausea and vomiting 3 days onset according to the record. Currently has NG tube with recommendation of Jevity 1.5 feedings. Respiratory failure currently being managed by plaster molder and ventilator management Possible sepsis, unspecified, leukocytosis 18.9 on admission currently 14.8 Constipation and rectal impaction per CT scan, nursing staff is attempting to remove rectal impaction but stool appears to be constant soft and brown no obvious blood seen Anemia could be acute on chronic disease, unspecified for now, no obvious bleeding noted Plan NG tube with recommendations of Jevity 1.5 okay for trickle feeds this P Consent for EGD in a.m. to be done in the intensive care unit N.p.o. at midnight Monitor labs Remove rectal impaction Okay for a tap water enema if needed Further recommendations to follow Consider colonoscopy when patient is more stable dependent on symptoms inpatient versus outpatient She was seen per myself and Dr. Turner, note was written on her behalf <Kaley Braun - Last Filed: 02/03/18 16:26> - Attending Attestation seen, examined agree with above egd in am colonoscopy once stable and able to tolerate po <Paola Turner - Last Filed: 02/04/18 05:42>
[2018-02-03 19:24] LABS: Phosphorus 3.4 mg/dL (2.5-4.9)
[2018-02-04] MEDS ORDERED: Chlorhexidine Gluconate 2% 1 Pack (2 Cloths) TOPICAL PRN (04:00)
[2018-02-04] MEDS: Insulin NovoLIN Regular Correctional Sugar Inj SQ SCH ×5 (04:27→20:11)
[2018-02-04] MEDS: Piperacil/Tazo 4.5 GM Premix 4.5 GM/100 ML BAG IV.SIG SCH ×4 (04:28→20:02)
[2018-02-04] MEDS: Chlorhexidine 0.12% Oral Kit 15 ML UDC OROPHARYNG SCH ×3 (04:29→20:06)
[2018-02-04] MEDS: Oral Hygiene Kit OROPHARYNG SCH ×3 (04:29→16:51)
[2018-02-04 06:15] LABS: Baso % (Auto) 0.1 % (0.0-2.0); Eos % (Auto) 0.1 % (0.0-4.0); Hematocrit 22.6 % (39.0-51.0); Hemoglobin 7.6 gm/dL (13.0-17.0); Lymph # (Auto) 1.6 th/mm3 (1.0-4.8); Lymph % (Auto) 14.9 % (9.0-44.0); Mean Corpuscular HGB Conc 33.8 % (32.0-36.0); Mean Corpuscular Hemoglobin 31.7 pg (27.0-34.0); Mean Corpuscular Volume 93.6 fL (80.0-100.0); Mono # (Auto) 0.4 th/mm3 (0.0-0.9); Mono % (Auto) 3.3 % (0.0-8.0); Neut # (Auto) 8.7 th/mm3 (1.8-7.7); Neut % (Auto) 81.6 % (16.0-70.0); Platelet Count 231 th/mm3 (150-450); Red Blood Count 2.41 mil/mm3 (4.50-5.90); Red Cell Distribution Width 13.3 % (11.6-17.2); White Blood Count 10.7 th/mm3 (4.0-11.0)
[2018-02-04 06:22] LABS: Prothrombin Time 9.9 sec (9.8-11.6)
[2018-02-04 07:05] LABS: Calcium 6.7 mg/dL (8.5-10.1); Carbon Dioxide 28.2 meq/L (21.0-32.0); Magnesium 1.8 mg/dL (1.5-2.5); Phosphorus 1.9 mg/dL (2.5-4.9); Total Protein 5.2 g/dL (6.4-8.2)
[2018-02-04 07:08] LABS: Potassium 2.8 meq/L (3.5-5.1)
[2018-02-04] MEDS: Sod Chloride 0.9% Inj 1,000 ML IV.CONT SCH ×2 (07:40→16:51)
[2018-02-04] MEDS: Potassium Chlor 40 mEq Premix 40 MEQ/100 ML PIGGYBACK IV.SIG PRN ×2 (07:40→11:57)
--- NOTE | 2018-02-04 08:12 | P.PNCC ---
Subjective Subjective Remarks/Hospital Course: 67 unfortunate male who was brought via EVAC for vomiting to freestanding emergency department at [place]. According to EVAC, the patient's brother called because patient has been having vomiting for the last 3days. When EVAC arrived in the patient was on bed, with low oxygen saturation, they put him on CPAP and brought into the ER. On arrival to the ER the patient was AMS, unable to give any history, no family at the bedside to give any information. The patient was intubated for airway protection by ED attending, the central line was placed into the femoral vein and the patient was started on IV fluid bolus resuscitation as well as antibiotics. He is being transferred to [facility] for higher level of care and critical care management. 02/04 Patient is off sedation. Awake and follows commands. CT brain yesterday showed no acute findings. Afebrile. NPO for EGD today. On Levophed 4mics Objective Vital Signs / I&O: Vital Signs 02/03/18 08:00 02/03/18 08:12 02/03/18 08:14 Temperature 98.2 F Pulse Rate 121 H 88 100 H Respiratory Rate 14 14 24 Blood Pressure 70/46 L Pulse Oximetry 98 100 02/03/18 09:00 02/03/18 10:00 02/03/18 11:00 Temperature Pulse Rate 119 H 117 H 120 H Respiratory Rate 15 15 14 Blood Pressure 98/55 L 91/55 L 87/50 L Pulse Oximetry 02/03/18 11:15 02/03/18 12:00 02/03/18 13:00 Temperature 98.3 F Pulse Rate 115 H 115 H Respiratory Rate 14 14 15 Blood Pressure 88/55 L 88/54 L Pulse Oximetry 100 02/03/18 14:00 02/03/18 14:41 02/03/18 15:00 Temperature Pulse Rate 115 H 114 H 114 H Respiratory Rate 14 12 16 Blood Pressure 88/50 L 87/54 L Pulse Oximetry 100 02/03/18 16:00 02/03/18 17:00 02/03/18 18:00 Temperature 98.1 F Pulse Rate 114 H 112 H 111 H Respiratory Rate 17 18 15 Blood Pressure 91/53 L 96/55 L 94/52 L Pulse Oximetry 02/03/18 19:00 02/03/18 19:41 02/03/18 20:00 Temperature 97.2 F L Pulse Rate 113 H 115 H 114 H Respiratory Rate 14 14 16 Blood Pressure 101/54 L 101/54 L Pulse Oximetry 100 100 98 02/03/18 21:00 02/03/18 22:00 02/03/18 23:13 Temperature 97.2 F L Pulse Rate 114 H 113 H Respiratory Rate 18 18 16 Blood Pressure 100/58 L 103/58 L Pulse Oximetry 96 98 100 02/04/18 02:44 02/04/18 03:29 Temperature Pulse Rate 120 H Respiratory Rate 15 14 Blood Pressure Pulse Oximetry 99 Intake & Output 02/03/18 02/04/18 02/04/18 18:59 06:59 18:59 Intake Total 1910 / 1910 100 / 100 Output Total 850 / 850 Balance 1060 / 1060 100 / 100 Intake: IV 1710 / 1710 100 / 100 NS Inj 1,000 ML @ 75 mls/hr IV. 1000 / 1000 CONT .[id number] [facility] Rx#:[id number] Levophed-Dextrose 4 mg/250 ml 250 / 250 Drip 4 mg In 250 ml @ 2 MCG/MIN 7.5 mls/hr IV.SIG TITRATE PRN Rx#:[id number] Zosyn 4.5 GM Premix 4.5 gm In 200 / 200 100 / 100 100 ml @ 200 mls/hr IV.SIG Q6H [facility] Rx#:[id number] Potassium Phosphate Inj 30 MMOL 260 / 260 In NS Inj 250 ML @ 42 mls/hr IV.SIG UNSCH PRN Rx#:[id number] Tube Feeding 200 / 200 Output: Urine Amount (Catheter) 450 / 450 Indwelling Urethral Catheter 450 / 450 Gastric Drainage 400 / 400 Orogastric Tube 400 / 400 Other: Date of Last Bowel Movement 02/03/18 02/03/18 # Bowel Movements 1 Result Diagrams: 02/04/18 05:56 02/04/18 05:56 Other Results: Laboratory Results - last 12 hr 02/03/18 02/04/18 02/04/18 20:42 03:45 05:56 WBC 10.7 RBC 2.41 L Hgb 7.6 L D Hct 22.6 L MCV 93.6 MCH 31.7 MCHC 33.8 RDW 13.3 Plt Count 231 MPV 8.0 Neut % (Auto) 81.6 H Lymph % (Auto) 14.9 [place] % (Auto) 3.3 Eos % (Auto) 0.1 Baso % (Auto) 0.1 Neut # (Auto) 8.7 H Lymph # (Auto) 1.6 [place] # (Auto) 0.4 Eos # (Auto) 0.0 Baso # (Auto) 0.0 WBC Differential . Differential Comment Auto diff final PT INR APTT Sodium Potassium Chloride Carbon Dioxide Anion Gap BUN Creatinine Estimated GFR POC Glucose 138 H 256 H Random Glucose Lactic Acid Calcium Calcium Adj for Albumin Phosphorus Magnesium Total Bilirubin AST ALT Alkaline Phosphatase Total Protein Albumin 02/04/18 02/04/18 02/04/18 05:56 05:56 05:56 WBC RBC Hgb Hct MCV MCH MCHC RDW Plt Count MPV Neut % (Auto) Lymph % (Auto) [place] % (Auto) Eos % (Auto) Baso % (Auto) Neut # (Auto) Lymph # (Auto) [place] # (Auto) Eos # (Auto) Baso # (Auto) WBC Differential Differential Comment PT 9.9 INR 1.0 APTT 32.0 H Sodium 140 Potassium 2.8 L* D Chloride 104 Carbon Dioxide 28.2 Anion Gap 8 BUN 15 Creatinine 0.96 Estimated GFR 78 L POC Glucose Random Glucose 216 H Lactic Acid 0.9 Calcium 6.7 L* Calcium Adj for Albumin 8.3 L Phosphorus 1.9 L D Magnesium 1.8 Total Bilirubin 0.3 AST 14 L ALT 13 Alkaline Phosphatase 79 Total Protein 5.2 L Albumin 2.0 L Imaging: Abdomen/Bladder Ultrasound 02/03/18 00:00 CONCLUSION: 1. Bilateral renal cortical thinning with increased echogenicity characteristic of chronic renal disease. 2. No evidence of hydronephrosis or mass. Abdomen/Pelvis CT 02/03/18 08:04 CONCLUSION: 1. Dense consolidation of the left lower lobe 2. Rectal fecal impaction with rectal wall thickening 3. Bowling catheter and right femoral central venous catheter noted in place. 4. No evidence of obstruction. Head CT 02/03/18 08:04 CONCLUSION: 1. White matter hypodensity most characteristic of chronic ischemic white matter disease. 2. No evidence of acute infarct, hemorrhage, mass or edema. . Chest CT 02/03/18 08:05 CONCLUSION: 1. Dense consolidating airspace disease in the left lower lobe with minimal patchy airspace disease in the upper lobes. 2. Moderate coronary artery calcification. 3. Tip of endotracheal tube at the level the ken. 4. Tip of nasogastric tube in the gastric antrum. Objective Remarks: GENERAL: Patient is 67 yo lying in be din NAD. SKIN: Warm and dry. HEAD: Normocephalic. EYES: No scleral icterus. No injection or drainage. NECK: Supple, trachea midline. No JVD or lymphadenopathy. CARDIOVASCULAR: Regular rate and rhythm without murmurs, gallops, or rubs. RESPIRATORY: Breath sounds equal bilaterally. No accessory muscle use. GASTROINTESTINAL: Abdomen soft, non-tender, nondistended. MUSCULOSKELETAL: No cyanosis, or edema. Neuro: Awake and follows commands. Assessment and Plan - Assessment and Plan Plan: VDRF LLL pneumonia Leukocytosis... trending down MATHEW... improving Anemia Hypokalemia Plan Neuro: Awake and follows commands CT brain 02/03: No acute intracranial findings Pulm: Continue with vent support keep sats >92% Bronchodilators, ICU vent bundle. SBT daily as sandra. CT chest 02/03: Dense consolidating airspace disease in the left lower lobe with minimal patchy airspace disease in the upper lobes. CV: Wean off Levophed Monitor HR and BP keep MAP>65mmHg Lactic acid: 0.9 : Monitor renal function, I/O's, electrolytes replacement per protocol. Will need K, Phos replacement today. On NS@75ml/hr. GI: NPO for possible EGD today. GI is following. On Pepcid for GI prophylaxis. ID: Continue abx( Vanco, Zosyn) and monitor for signs of infections ( Fever, WBC ) WBC is trending down Sputum cx, Legionella and Pneumococcal urinary Ag pending. 02/03 BC from [place] -NGTD Heme: Monitor CBC Endo: SSI for glycemic control DVT GI prophylaxis -Teds SCDs -Hold Subcu heparin for drop in Hgb -IV Pepcid 30 minutes of critical care
[2018-02-04] MEDS: Famotidine PF Inj 20 MG/2 ML Vial IV.PUSH SCH ×2 (08:36→20:03)
[2018-02-04] MEDS: Senna/Docusate Sodium 8.6/50 MG Tablet PO SCH ×2 (08:36→20:03)
[2018-02-04] MEDS: Vancomycin Inj 1,500 MG in Sodium Chlor 0.9% Inj 500 ML IV.SIG SCH (11:58)
[2018-02-04] MEDS: Propofol 1000 mg/100 ml Inj 1,000 MG/100 ML BOTTLE IV.CONT PRN ×2 (16:50→20:03)
[2018-02-04 17:42] LABS: Hematocrit 21.8 % (39.0-51.0); Hemoglobin 7.5 gm/dL (13.0-17.0)
[2018-02-05] MEDS: Insulin NovoLIN Regular Correctional Sugar Inj SQ SCH ×6 (00:20→20:22)
[2018-02-05] MEDS: Oral Hygiene Kit OROPHARYNG SCH ×4 (00:57→16:01)
[2018-02-05] MEDS: Sod Chloride 0.9% Inj 1,000 ML IV.CONT SCH (04:15)
[2018-02-05] MEDS: Propofol 1000 mg/100 ml Inj 1,000 MG/100 ML BOTTLE IV.CONT PRN ×2 (04:15→09:02)
[2018-02-05] MEDS: Chlorhexidine Gluconate 2% 1 Pack (2 Cloths) TOPICAL SCH (04:16)
[2018-02-05] MEDS: Piperacil/Tazo 4.5 GM Premix 4.5 GM/100 ML BAG IV.SIG SCH ×4 (04:16→20:20)
[2018-02-05] MEDS: Vancomycin Inj 1,500 MG in Sodium Chlor 0.9% Inj 500 ML IV.SIG SCH ×2 (06:22→23:10)
[2018-02-05 07:02] LABS: Baso % (Auto) 0.3 % (0.0-2.0); Eos # (Auto) 0.1 th/mm3 (0.0-0.4); Eos % (Auto) 0.7 % (0.0-4.0); Hemoglobin 8.2 gm/dL (13.0-17.0); Lymph # (Auto) 1.8 th/mm3 (1.0-4.8); Lymph % (Auto) 24.8 % (9.0-44.0); Mean Corpuscular HGB Conc 32.8 % (32.0-36.0); Mean Corpuscular Hemoglobin 31.2 pg (27.0-34.0); Mean Platelet Volume 8.2 fL (7.0-11.0); Mono # (Auto) 0.3 th/mm3 (0.0-0.9); Neut # (Auto) 5.2 th/mm3 (1.8-7.7); Neut % (Auto) 70.2 % (16.0-70.0); Platelet Count 244 th/mm3 (150-450); Red Blood Count 2.63 mil/mm3 (4.50-5.90); Red Cell Distribution Width 13.7 % (11.6-17.2); White Blood Count 7.5 th/mm3 (4.0-11.0)
[2018-02-05 07:26] LABS: Alanine Aminotransferase 16 U/L (12-78); Albumin 2.1 g/dL (3.4-5.0); Alkaline Phosphatase 81 U/L (45-117); Anion Gap 8 meq/L (5-15); Aspartate Aminotransferase 15 U/L (15-37); Blood Urea Nitrogen 9 mg/dL (7-18); Calcium 7.8 mg/dL (8.5-10.1); Carbon Dioxide 25.2 meq/L (21.0-32.0); Chloride 110 meq/L (98-107); Glomerular Filtration Rate 88 mL/min (>89); Glucose,Random 104 mg/dL (74-106); Phosphorus 2.6 mg/dL (2.5-4.9); Potassium 4.2 meq/L (3.5-5.1); Sodium 143 meq/L (136-145); Total Protein 5.8 g/dL (6.4-8.2)
--- NOTE | 2018-02-05 08:28 | P.PNCC ---
Subjective Subjective Remarks/Hospital Course: 67 unfortunate male who was brought via EVAC for vomiting to freestanding emergency department at [place]. According to EVAC, the patient's brother called because patient has been having vomiting for the last 3days. When EVAC arrived in the patient was on bed, with low oxygen saturation, they put him on CPAP and brought into the ER. On arrival to the ER the patient was AMS, unable to give any history, no family at the bedside to give any information. The patient was intubated for airway protection by ED attending, the central line was placed into the femoral vein and the patient was started on IV fluid bolus resuscitation as well as antibiotics. He is being transferred to [facility] for higher level of care and critical care management. 02/04 Patient is off sedation. Awake and follows commands. CT brain yesterday showed no acute findings. Afebrile. NPO for EGD today. On Levophed 4mics 02/05 Patient remains intubated and sedated with Diprivan. Off Levophed. For EGD today. Afebrile. Objective Vital Signs / I&O: Vital Signs 02/04/18 10:45 02/04/18 11:00 02/04/18 11:15 Temperature Pulse Rate 117 H 116 H 112 H Respiratory Rate 23 23 20 Blood Pressure 92/58 L 98/56 L 102/56 L Pulse Oximetry 98 94 L 97 02/04/18 11:30 02/04/18 11:37 02/04/18 11:45 Temperature Pulse Rate 112 H 108 H Respiratory Rate 23 21 18 Blood Pressure 98/56 L 104/59 L Pulse Oximetry 96 98 100 02/04/18 12:00 02/04/18 12:43 02/04/18 13:00 Temperature 98.3 F Pulse Rate 109 H 112 H 112 H Respiratory Rate 20 18 29 H Blood Pressure 108/55 L 106/55 L 103/64 Pulse Oximetry 100 100 99 02/04/18 13:30 02/04/18 14:00 02/04/18 14:30 Temperature Pulse Rate 110 H 109 H 108 H Respiratory Rate 15 19 16 Blood Pressure 110/66 101/55 L 107/58 L Pulse Oximetry 100 100 100 02/04/18 15:00 02/04/18 15:30 02/04/18 16:00 Temperature 98.5 F Pulse Rate 113 H 111 H 107 H Respiratory Rate 16 17 17 Blood Pressure 110/61 113/60 114/67 Pulse Oximetry 100 100 100 02/04/18 16:30 02/04/18 17:00 02/04/18 17:30 Temperature Pulse Rate 104 H 101 H 101 H Respiratory Rate 16 16 14 Blood Pressure 119/67 107/59 L 98/53 L Pulse Oximetry 100 99 100 02/04/18 18:00 02/04/18 18:30 02/04/18 19:00 Temperature Pulse Rate 98 H 93 H 89 Respiratory Rate 14 19 14 Blood Pressure 90/51 L 95/52 L 97/55 L Pulse Oximetry 99 99 100 02/04/18 19:30 02/04/18 19:44 02/04/18 20:00 Temperature 97.7 F Pulse Rate 86 84 82 Respiratory Rate 14 14 14 Blood Pressure 102/58 L 111/58 L Pulse Oximetry 99 100 100 02/04/18 20:30 02/04/18 21:00 02/04/18 21:30 Temperature Pulse Rate 86 88 85 Respiratory Rate 16 17 14 Blood Pressure 110/61 99/64 L 107/59 L Pulse Oximetry 100 100 100 02/04/18 22:00 02/04/18 22:30 02/04/18 23:00 Temperature Pulse Rate 83 82 82 Respiratory Rate 14 14 11 L Blood Pressure 96/55 L 94/54 L 103/58 L Pulse Oximetry 99 99 99 02/04/18 23:30 02/05/18 00:00 02/05/18 00:30 Temperature 97.8 F Pulse Rate 80 76 75 Respiratory Rate 14 14 14 Blood Pressure 109/60 115/67 117/69 Pulse Oximetry 100 100 100 02/05/18 01:00 02/05/18 01:23 02/05/18 01:30 Temperature Pulse Rate 84 76 Respiratory Rate 21 14 14 Blood Pressure 111/81 119/70 Pulse Oximetry 100 100 100 02/05/18 02:00 02/05/18 02:30 02/05/18 03:00 Temperature Pulse Rate 75 76 77 Respiratory Rate 16 14 14 Blood Pressure 115/76 127/68 118/72 Pulse Oximetry 100 100 100 02/05/18 03:24 02/05/18 03:30 02/05/18 04:00 Temperature 97.6 F Pulse Rate 76 77 78 Respiratory Rate 14 14 14 Blood Pressure 107/61 105/63 Pulse Oximetry 100 100 02/05/18 04:30 02/05/18 04:40 02/05/18 05:00 Temperature Pulse Rate 73 86 Respiratory Rate 14 14 14 Blood Pressure 121/66 109/59 L Pulse Oximetry 100 100 100 02/05/18 05:30 02/05/18 06:00 02/05/18 06:02 Temperature Pulse Rate 87 79 82 Respiratory Rate 20 21 16 Blood Pressure 98/55 L 116/73 Pulse Oximetry 100 100 02/05/18 07:46 Temperature Pulse Rate 64 Respiratory Rate 14 Blood Pressure Pulse Oximetry 100 Intake & Output 02/04/18 02/05/18 02/05/18 18:59 06:59 18:59 Intake Total 1914 / 1914 1400 / 1400 Output Total 1300 / 1300 1300 / 1300 Balance 615 / 615 100 / 100 Weight 78.7 kg Intake: IV 1914 1400 / 1400 Diprivan 1000 mg/100 ml Inj 1, 200 / 200 000 mg In 100 ml @ 5 MCG/KG/MIN 2.4 mls/hr IV.CONT TITRATE PRN Rx#:[id number] NS Inj 1,000 ML @ 75 mls/hr IV. 1000 / 1000 1000 / 1000 CONT .[id number] [facility] Rx#:[id number] Zosyn 4.5 GM Premix 4.5 gm In 200 / 200 200 / 200 100 ml @ 200 mls/hr IV.SIG Q6H [facility] Rx#:[id number] KCl 40 mEq Premix Inj 40 meq In 200 / 200 100 ml @ 25 mls/hr IV.SIG Q2H PRN Rx#:[id number] Vancomycin Inj 1,500 MG In NS 515 / 515 Inj 500 ML @ 250 mls/hr IV.SIG Q18H [facility] Rx#:[id number] Output: Urine 900 / 900 1100 / 1100 Gastric Drainage 400 / 400 200 / 200 Orogastric Tube 400 / 400 200 / 200 Other: Date of Last Bowel Movement 02/03/18 Result Diagrams: 02/05/18 05:40 02/05/18 05:40 Other Results: Laboratory Results - last 12 hr 02/05/18 02/05/18 02/05/18 00:18 04:27 05:40 WBC RBC Hgb Hct MCV MCH MCHC RDW Plt Count MPV Neut % (Auto) Lymph % (Auto) [place] % (Auto) Eos % (Auto) Baso % (Auto) Neut # (Auto) Lymph # (Auto) [place] # (Auto) Eos # (Auto) Baso # (Auto) WBC Differential Differential Comment Sodium 143 Potassium 4.2 Chloride 110 H Carbon Dioxide 25.2 Anion Gap 8 BUN 9 Creatinine 0.86 Estimated GFR 88 L POC Glucose 111 H 104 Random Glucose 104 D Calcium 7.8 L D Phosphorus 2.6 Magnesium 2.0 Total Bilirubin 0.3 AST 15 ALT 16 Alkaline Phosphatase 81 Total Protein 5.8 L D Albumin 2.1 L 02/05/18 05:40 WBC 7.5 RBC 2.63 L Hgb 8.2 L Hct 25.0 L MCV 95.0 MCH 31.2 MCHC 32.8 RDW 13.7 Plt Count 244 MPV 8.2 Neut % (Auto) 70.2 H Lymph % (Auto) 24.8 [place] % (Auto) 4.0 Eos % (Auto) 0.7 Baso % (Auto) 0.3 Neut # (Auto) 5.2 Lymph # (Auto) 1.8 [place] # (Auto) 0.3 Eos # (Auto) 0.1 Baso # (Auto) 0.0 WBC Differential . Differential Comment Auto diff final Sodium Potassium Chloride Carbon Dioxide Anion Gap BUN Creatinine Estimated GFR POC Glucose Random Glucose Calcium Phosphorus Magnesium Total Bilirubin AST ALT Alkaline Phosphatase Total Protein Albumin Imaging: Abdomen/Bladder Ultrasound 02/03/18 00:00 CONCLUSION: 1. Bilateral renal cortical thinning with increased echogenicity characteristic of chronic renal disease. 2. No evidence of hydronephrosis or mass. Abdomen/Pelvis CT 02/03/18 08:04 CONCLUSION: 1. Dense consolidation of the left lower lobe 2. Rectal fecal impaction with rectal wall thickening 3. Bowling catheter and right femoral central venous catheter noted in place. 4. No evidence of obstruction. Head CT 02/03/18 08:04 CONCLUSION: 1. White matter hypodensity most characteristic of chronic ischemic white matter disease. 2. No evidence of acute infarct, hemorrhage, mass or edema. . Chest CT 02/03/18 08:05 CONCLUSION: 1. Dense consolidating airspace disease in the left lower lobe with minimal patchy airspace disease in the upper lobes. 2. Moderate coronary artery calcification. 3. Tip of endotracheal tube at the level the ken. 4. Tip of nasogastric tube in the gastric antrum. Objective Remarks: GENERAL: Patient is 67 yo lying in be din NAD. SKIN: Warm and dry. HEAD: Normocephalic. EYES: No scleral icterus. No injection or drainage. NECK: Supple, trachea midline. No JVD or lymphadenopathy. CARDIOVASCULAR: Regular rate and rhythm without murmurs, gallops, or rubs. RESPIRATORY: Breath sounds equal bilaterally. No accessory muscle use. GASTROINTESTINAL: Abdomen soft, non-tender, nondistended. MUSCULOSKELETAL: No cyanosis, or edema. Neuro: Sedated and intubated Assessment and Plan - Assessment and Plan Plan: VDRF LLL pneumonia Leukocytosis... trending down MATHEW... improving Anemia Hypokalemia Plan Neuro: On Diprivan infusion for sedation. Daily sedation vacation. CT brain 02/03: No acute intracranial findings Pulm: Continue with vent support keep sats >92% Bronchodilators, ICU vent bundle. SBT daily as sandra. CT chest 02/03: Dense consolidating airspace disease in the left lower lobe with minimal patchy airspace disease in the upper lobes. CV: off Levophed Monitor HR and BP keep MAP>65mmHg Lactic acid: 0.9 : Monitor renal function, I/O's, electrolytes replacement per protocol. Diurese with Lasix 40mg IV x1 GI: NPO for EGD today. GI is following. On Pepcid for GI prophylaxis. ID: Continue abx( Vanco, Zosyn) and monitor for signs of infections ( Fever, WBC ) WBC is trending down Legionella and Pneumococcal urinary Ag negative 02/03 BC from [place] -NGTD, 02/03 Urine cx: Enterococcus Faecalis 02/03 Sputum: GNR and staph species Heme: Monitor CBC Endo: SSI for glycemic control DVT GI prophylaxis -Teds SCDs - Subcu heparin on hold ( Hgb trending down) -IV Pepcid Level 3
[2018-02-05] MEDS: Famotidine PF Inj 20 MG/2 ML Vial IV.PUSH SCH (09:02)
[2018-02-05] MEDS: Senna/Docusate Sodium 8.6/50 MG Tablet PO SCH ×2 (09:02→20:21)
[2018-02-05] MEDS: Chlorhexidine 0.12% Oral Kit 15 ML UDC OROPHARYNG SCH ×2 (09:03→20:22)
--- NOTE | 2018-02-05 10:24 | ECG ---
Date Performed: 02/05/2018 Time Performed: 05:45:26 PTAGE: 67 years EKG: Sinus rhythm Borderline ECG NO PREVIOUS TRACING DOCTOR: John Reynolds Interpretating Date/Time 02/05/2018 10:23:11
--- NOTE | 2018-02-05 13:18 | GIPROC ---
[facility] [address] [facility]. [facility], [address] EGD PROCEDURE REPORT EXAM DATE: 02/05/2018 PATIENT NAME: Darian Gregory MR #: [id number] BIRTHDATE: 1950 ATTENDING: George Goel MD ORDER #: [id number] FRUIT PACKER: Fabián Lovett Howard, Jennifer, and Yesica Lopez STATUS: inpatient INDICATIONS: The patient is a 67 yr old male here for an EGD due to nausea and vomiting PROCEDURE PERFORMED: EGD, diagnostic MEDICATIONS: Per Anesthesia and None. TOPICAL ANESTHETIC: none CONSENT: The patient understands the risks and benefits of the procedure and understands that these risks include, but are not limited to: sedation, allergic reaction, infection, perforation and/or bleeding. Alternative means of evaluation and treatment include, among others: physical exam, x-rays, and/or surgical intervention. The patient elects to proceed with this endoscopic procedure. medical equipment was checked for proper function. Hand hygiene and appropriate measures for infection prevention was taken. After the risks, benefits and alternatives of the procedure were thoroughly explained, Informed consent was verified, confirmed and timeout was successfully executed by the treatment team. The patient was anesthetized with topical anesthesia and the Pentax [id number] endoscope was introduced through the mouth and advanced to the second portion of the duodenum. Retroflexed views revealed viewing impaired by retained food The gastroscope was then slowly withdrawn and removed. ESOPHAGUS: The mucosa of the esophagus appeared normal. STOMACH: There was a moderate amount of residual food seen in the entire examined stomach. Based on this, I suspect the patient has some level of gastroparesis. There was mild antral gastropathy noted. Cold forcep biopsies were taken at the antrum and angularis. DUODENUM: The duodenal mucosa appeared normal in the entire duodenum. ADVERSE EVENTS: There were no complications. IMPRESSIONS: 1. The esophagus appeared normal 2. Food residue in the entire examined stomach, suspect Gastroperesis 3. There was mild antral gastropathy noted [T2] 4. Normal duodenal mucosa in the entire duodenum 5. Retroflexed views revealed viewing impaired by retained food RECOMMENDATIONS: IV REGLAN IV PROTONIX PATIENT CONDITION: stable DISPOSITION: Inpatient REPEAT EXAM: Return as needed for EGD George Goel MD eSigned: George Goel MD 02/05/2018 1:17 PM cc: PATIENT NAME: Darian Gregory MR#: [id number]
--- NOTE | 2018-02-05 15:35 | XR ---
EXAM DATE: 02/05/2018 3:30 PM EST AGE/SEX: 67 years / Male INDICATIONS: Short of breath, evaluate pneumonia CLINICAL DATA: This is the patient's subsequent encounter. Patient reports that signs and symptoms h ave been present for 2 days and indicates a pain score of 0/10. MEDICAL/SURGICAL HISTORY: Non-responsive. Non-responsive. COMPARISON: [facility], CHEST 1V SINGLE AP, 02/03/2018. . FINDINGS: Endotracheal and nasogastric tubes have been removed. Persistent airspace disease is identified in the left lung base The right lung is clear. Heart and mediastinal structures are stable CONCLUSION: Persistent left basilar airspace disease Otherwise stable chest status post extubation. Electronically signed by: William Williamson MD 02/05/2018 3:34 PM EST
[2018-02-05] MEDS: Pantoprazole Inj 40 MG Vial IV.PUSH SCH (16:00)
[2018-02-06] MEDS: Insulin NovoLIN Regular Correctional Sugar Inj SQ SCH ×6 (00:06→21:52)
[2018-02-06] MEDS: Oral Hygiene Kit OROPHARYNG SCH ×4 (01:53→18:37)
[2018-02-06] MEDS: Piperacil/Tazo 4.5 GM Premix 4.5 GM/100 ML BAG IV.SIG SCH ×4 (03:48→21:55)
[2018-02-06] MEDS: Chlorhexidine Gluconate 2% 1 Pack (2 Cloths) TOPICAL SCH (03:48)
[2018-02-06 07:04] LABS: Baso % (Auto) 0.3 % (0.0-2.0); Eos % (Auto) 0.3 % (0.0-4.0); Hematocrit 26.7 % (39.0-51.0); Hemoglobin 9.2 gm/dL (13.0-17.0); Lymph # (Auto) 1.7 th/mm3 (1.0-4.8); Lymph % (Auto) 21.9 % (9.0-44.0); Mean Corpuscular HGB Conc 34.4 % (32.0-36.0); Mean Corpuscular Hemoglobin 31.9 pg (27.0-34.0); Mean Corpuscular Volume 92.9 fL (80.0-100.0); Mean Platelet Volume 8.3 fL (7.0-11.0); Mono # (Auto) 0.3 th/mm3 (0.0-0.9); Mono % (Auto) 3.8 % (0.0-8.0); Neut # (Auto) 5.8 th/mm3 (1.8-7.7); Neut % (Auto) 73.7 % (16.0-70.0); Platelet Count 271 th/mm3 (150-450); Red Blood Count 2.87 mil/mm3 (4.50-5.90); Red Cell Distribution Width 13.2 % (11.6-17.2); White Blood Count 7.9 th/mm3 (4.0-11.0)
[2018-02-06 07:24] LABS: Alanine Aminotransferase 15 U/L (12-78); Albumin 2.3 g/dL (3.4-5.0); Anion Gap 10 meq/L (5-15); Aspartate Aminotransferase 15 U/L (15-37); Blood Urea Nitrogen 7 mg/dL (7-18); Carbon Dioxide 27.8 meq/L (21.0-32.0); Chloride 106 meq/L (98-107); Glomerular Filtration Rate Greater Than 89 mL/min (>89); Glucose,Random 97 mg/dL (74-106); Magnesium 1.9 mg/dL (1.5-2.5); Phosphorus 3.6 mg/dL (2.5-4.9); Potassium 3.7 meq/L (3.5-5.1); Sodium 144 meq/L (136-145)
[2018-02-06 07:27] LABS: Alkaline Phosphatase 93 U/L (45-117); Total Protein 6.7 g/dL (6.4-8.2)
[2018-02-06] MEDS: Chlorhexidine 0.12% Oral Kit 15 ML UDC OROPHARYNG SCH ×2 (08:46→21:54)
[2018-02-06] MEDS: Senna/Docusate Sodium 8.6/50 MG Tablet PO SCH ×2 (09:15→21:55)
--- NOTE | 2018-02-06 10:40 | P.PNCC ---
Subjective Subjective Remarks/Hospital Course: 67 unfortunate male who was brought via EVAC for vomiting to freestanding emergency department at [place]. According to EVAC, the patient's brother called because patient has been having vomiting for the last 3days. When EVAC arrived in the patient was on bed, with low oxygen saturation, they put him on CPAP and brought into the ER. On arrival to the ER the patient was AMS, unable to give any history, no family at the bedside to give any information. The patient was intubated for airway protection by ED attending, the central line was placed into the femoral vein and the patient was started on IV fluid bolus resuscitation as well as antibiotics. He is being transferred to [facility] for higher level of care and critical care management. 02/04 Patient is off sedation. Awake and follows commands. CT brain yesterday showed no acute findings. Afebrile. NPO for EGD today. On Levophed 4mics 02/05 Patient remains intubated and sedated with Diprivan. Off Levophed. For EGD today. Afebrile. 02/06: Extubated yesterday tolerating well. Awake alert following commands. Completed EGD yesterday evidence of gastroparesis. Objective Vital Signs / I&O: Vital Signs 02/05/18 10:54 02/05/18 12:00 02/05/18 12:54 Temperature 98 F Pulse Rate 81 95 H Respiratory Rate 14 28 H 14 Blood Pressure 117/81 95/56 L Pulse Oximetry 100 99 100 02/05/18 12:58 02/05/18 13:00 02/05/18 13:03 Temperature Pulse Rate 98 H 98 H 99 H Respiratory Rate 13 20 18 Blood Pressure 117/81 121/87 Pulse Oximetry 100 100 100 02/05/18 13:06 02/05/18 13:09 02/05/18 13:12 Temperature Pulse Rate 102 H 113 H 108 H Respiratory Rate 21 25 H 27 H Blood Pressure 111/51 L 100/45 L 104/62 Pulse Oximetry 100 100 100 02/05/18 13:15 02/05/18 13:30 02/05/18 14:00 Temperature Pulse Rate 104 H 118 H 112 H Respiratory Rate 17 29 H 25 H Blood Pressure 106/65 93/53 L 100/56 L Pulse Oximetry 100 100 97 02/05/18 14:30 02/05/18 15:00 02/05/18 15:30 Temperature Pulse Rate 112 H 106 H 136 H Respiratory Rate 24 19 25 H Blood Pressure 110/52 L 106/65 113/62 Pulse Oximetry 100 100 100 02/05/18 16:00 02/05/18 16:02 02/05/18 16:30 Temperature 98.3 F Pulse Rate 109 H 102 H 106 H Respiratory Rate 22 17 24 Blood Pressure 123/76 118/55 L Pulse Oximetry 100 100 02/05/18 17:00 02/05/18 17:30 02/05/18 18:00 Temperature Pulse Rate 110 H 130 H 121 H Respiratory Rate 24 32 H 20 Blood Pressure 101/56 L 116/56 L Pulse Oximetry 100 98 100 02/05/18 18:30 02/05/18 19:00 02/05/18 19:30 Temperature Pulse Rate 123 H 115 H 120 H Respiratory Rate 22 22 31 H Blood Pressure 109/53 L 106/57 L 88/62 L Pulse Oximetry 100 100 100 02/05/18 19:49 02/05/18 20:00 02/05/18 20:30 Temperature 98.1 F Pulse Rate 108 H 110 H 121 H Respiratory Rate 16 26 H 27 H Blood Pressure 87/62 L 93/40 L Pulse Oximetry 100 100 02/05/18 21:00 02/05/18 21:30 02/05/18 22:00 Temperature Pulse Rate 108 H 109 H 104 H Respiratory Rate 22 26 H 26 H Blood Pressure 103/56 L 106/59 L 116/57 L Pulse Oximetry 100 100 100 02/05/18 22:30 02/05/18 23:00 02/05/18 23:01 Temperature Pulse Rate 102 H 100 H 105 H Respiratory Rate 23 28 H 28 H Blood Pressure 127/59 L 96/55 L Pulse Oximetry 100 100 100 02/05/18 23:30 02/06/18 00:00 02/06/18 00:30 Temperature 99.0 F Pulse Rate 99 H 97 H 97 H Respiratory Rate 26 H 25 H 26 H Blood Pressure 114/60 133/62 109/53 L Pulse Oximetry 100 100 100 02/06/18 01:00 02/06/18 01:30 02/06/18 02:00 Temperature Pulse Rate 96 H 94 H 96 H Respiratory Rate 24 29 H 19 Blood Pressure 120/76 118/82 129/91 H Pulse Oximetry 100 100 100 02/06/18 02:30 02/06/18 03:00 02/06/18 03:30 Temperature Pulse Rate 92 H 93 H 111 H Respiratory Rate 23 20 25 H Blood Pressure 114/68 127/60 107/63 Pulse Oximetry 100 100 100 02/06/18 04:00 02/06/18 04:23 02/06/18 07:59 Temperature 97.7 F Pulse Rate 103 H 113 H 116 H Respiratory Rate 23 30 H 18 Blood Pressure 121/60 Pulse Oximetry 100 02/06/18 08:00 02/06/18 08:01 Temperature Pulse Rate 123 H Respiratory Rate 30 H Blood Pressure 118/56 L Pulse Oximetry 97 Intake & Output 02/05/18 02/06/18 02/06/18 18:59 06:59 18:59 Intake Total 2115 / 2115 715 / 715 Output Total 1200 / 1200 2049 Balance 915 / 915 -1335 / -1335 Weight 75.5 kg Intake: IV 1915 / 1915 715 / 715 Diprivan 1000 mg/100 ml Inj 1, 200 / 200 000 mg In 100 ml @ 5 MCG/KG/MIN 2.4 mls/hr IV.CONT TITRATE PRN Rx#:[id number] NS Inj 1,000 ML @ 75 mls/hr IV. 1000 / 1000 CONT .[id number] [facility] Rx#:[id number] Zosyn 4.5 GM Premix 4.5 gm In 200 / 200 200 / 200 100 ml @ 200 mls/hr IV.SIG Q6H [facility] Rx#:[id number] Vancomycin Inj 1,500 MG In NS 515 / 515 515 / 515 Inj 500 ML @ 250 mls/hr IV.SIG Q18H [facility] Rx#:[id number] Oral 0 / 0 Anesthesia Amount 200 / 200 Output: Urine 1200 / 1200 Urine Amount (Catheter) 2049 Condom 2049 Other: # Incontinent Voids 2 Date of Last Bowel Movement 02/03/18 02/03/18 02/03/18 Result Diagrams: 02/06/18 04:33 02/06/18 04:33 Objective Remarks: GENERAL: Patient is 67 yo lying in bed, NAD. SKIN: Warm and dry. HEAD: Normocephalic. EYES: No scleral icterus. No injection or drainage. NECK: Supple, trachea midline. No JVD or lymphadenopathy. CARDIOVASCULAR: Regular rate and rhythm without murmurs, gallops, or rubs. RESPIRATORY: Breath sounds equal bilaterally. No accessory muscle use. GASTROINTESTINAL: Abdomen soft, non-tender, nondistended. MUSCULOSKELETAL: No cyanosis, or edema. Neuro: Alert awake oriented. Moves all extremities follows commands no focal deficits Assessment and Plan - Assessment and Plan Plan: Acute respiratory failure-resolved LLL pneumonia Leukocytosis... trending down MATHEW... improving Anemia Hypokalemia Plan Neuro: Remains off all sedation CT brain 02/03: No acute intracranial findings Pulm: Extubated yesterday tolerating well Bronchodilators, ICU vent bundle. CT chest 02/03: Dense consolidating airspace disease in the left lower lobe with minimal patchy airspace disease in the upper lobes. CV: off Levophed Monitor HR and BP keep MAP>65mmHg Lactic acid: 0.9 : Monitor renal function, I/O's, electrolytes replacement per protocol. s/p Diurese with Lasix 40mg IV x1 GI: Start diet per GI recommendations, IV Reglan for gastroparesis On Pepcid for GI prophylaxis. ID: Continue abx( Vanco, Zosyn) and monitor for signs of infections ( Fever, WBC ) WBC is trending down Legionella and Pneumococcal urinary Ag negative 02/03 BC from [place] -NGTD, 02/03 Urine cx: Enterococcus Faecalis 02/03 Sputum: Klebsiella and staph aureus Heme: Monitor CBC Endo: SSI for glycemic control DVT GI prophylaxis -Teds SCDs - Subcu heparin on hold ( Hgb trending down) -IV Pepcid Level 2 Consult hospitalist to assume care 02/07/2018, transferred to [facility] with telemetry
[2018-02-06] MEDS: Pantoprazole Inj 40 MG Vial IV.PUSH SCH (15:15)
[2018-02-06] MEDS ORDERED: Pharmacy Ordered Lab Info OTHER ONE (17:45)
[2018-02-06] MEDS: Vancomycin Inj 1,500 MG in Sodium Chlor 0.9% Inj 500 ML IV.SIG SCH (22:45)
[2018-02-07] MEDS: Oral Hygiene Kit OROPHARYNG SCH ×4 (03:14→17:21)
[2018-02-07] MEDS: Piperacil/Tazo 4.5 GM Premix 4.5 GM/100 ML BAG IV.SIG SCH ×4 (03:14→22:55)
[2018-02-07] MEDS: Chlorhexidine Gluconate 2% 1 Pack (2 Cloths) TOPICAL SCH (03:15)
[2018-02-07] MEDS: Insulin NovoLIN Regular Correctional Sugar Inj SQ SCH ×7 (03:21→22:54)
[2018-02-07 07:00] LABS: Baso % (Auto) 0.3 % (0.0-2.0); Eos % (Auto) 0.5 % (0.0-4.0); Hematocrit 27.6 % (39.0-51.0); Hemoglobin 9.5 gm/dL (13.0-17.0); Mean Corpuscular HGB Conc 34.3 % (32.0-36.0); Mean Corpuscular Hemoglobin 31.8 pg (27.0-34.0); Mean Corpuscular Volume 92.7 fL (80.0-100.0); Mean Platelet Volume 8.2 fL (7.0-11.0); Mono # (Auto) 0.4 th/mm3 (0.0-0.9); Mono % (Auto) 3.9 % (0.0-8.0); Neut # (Auto) 6.9 th/mm3 (1.8-7.7); Neut % (Auto) 74.3 % (16.0-70.0); Platelet Count 328 th/mm3 (150-450); Red Blood Count 2.98 mil/mm3 (4.50-5.90); Red Cell Distribution Width 13.3 % (11.6-17.2); White Blood Count 9.3 th/mm3 (4.0-11.0)
[2018-02-07 07:32] LABS: Glomerular Filtration Rate Greater Than 89 mL/min (>89)
[2018-02-07] MEDS: Senna/Docusate Sodium 8.6/50 MG Tablet PO SCH ×2 (09:14→20:18)
[2018-02-07] MEDS: Chlorhexidine 0.12% Oral Kit 15 ML UDC OROPHARYNG SCH ×2 (09:15→20:17)
[2018-02-07] MEDS ORDERED: Sodium Chlor 0.9% Inj 500 ML IV.SIG SCH (11:21)
[2018-02-07] MEDS ORDERED: Pharmacy Ordered Lab Info OTHER ONE (11:45)
--- NOTE | 2018-02-07 11:58 | ECG ---
Date Performed: 02/07/2018 Time Performed: 10:50:24 PTAGE: 67 years EKG: Baseline artifact present SINUS TACHYCARDIA NONSPECIFIC T-WAVE ABNORMALITY ABNORMAL RHYTHM ECG Compared to prior electrocardiogram, Rate has increased and nonspecific T-wave changes are presen t. PREVIOUS TRACING : 02/05/2018 05.45 DOCTOR: Bonifacio Gutierrez Interpretating Date/Time 02/07/2018 11:56:48
[2018-02-07] MEDS ORDERED: Vancomycin Inj 1,500 MG in Sodium Chlor 0.9% Inj 500 ML IV.SIG SCH (12:00)
[2018-02-07 12:43] LABS: Albumin 2.5 g/dL (3.4-5.0); Anion Gap 20 meq/L (5-15); Aspartate Aminotransferase 19 U/L (15-37); Blood Urea Nitrogen 7 mg/dL (7-18); Calcium 8.4 mg/dL (8.5-10.1); Carbon Dioxide 14.5 meq/L (21.0-32.0); Chloride 108 meq/L (98-107); Glomerular Filtration Rate 79 mL/min (>89); Glucose,Random 110 mg/dL (74-106); Magnesium 1.7 mg/dL (1.5-2.5); Potassium 3.5 meq/L (3.5-5.1); Sodium 142 meq/L (136-145)
[2018-02-07 12:45] LABS: Alanine Aminotransferase 15 U/L (12-78)
[2018-02-07 12:47] LABS: Alkaline Phosphatase 91 U/L (45-117); Phosphorus 2.9 mg/dL (2.5-4.9)
[2018-02-07] MEDS: Pantoprazole Inj 40 MG Vial IV.PUSH SCH (15:00)
[2018-02-07] MEDS: Sod Chloride 0.9% Inj 1,000 ML IV.CONT SCH ×3 (17:20→22:58)
--- NOTE | 2018-02-07 17:25 | P.PNGI ---
Subjective Interval history: Pt is resting in chair, doing good, not voicing any gi issues Physical Exam Vital signs: Vital Signs 02/07/18 00:00 02/07/18 03:58 02/07/18 03:59 Temperature 98.2 F Pulse Rate 109 H 90 Respiratory Rate 19 20 Blood Pressure 114/58 L Pulse Oximetry 96 97 02/07/18 04:00 02/07/18 08:00 02/07/18 10:53 Temperature 98.3 F 98.4 F Pulse Rate 120 H 140 H 120 H Respiratory Rate 21 22 24 Blood Pressure 118/58 L 113/67 Pulse Oximetry 97 95 95 02/07/18 12:00 02/07/18 16:00 Temperature 98.4 F 98.2 F Pulse Rate 140 H 122 H Respiratory Rate 24 20 Blood Pressure 113/64 116/74 Pulse Oximetry 95 96 Intake & Output 02/06/18 02/07/18 02/07/18 18:59 06:59 18:59 Intake Total 200 / 200 200 / 200 Output Total 550 / 550 Balance 200 / 200 -350 / -350 Weight 81.6 kg 80.8 kg Intake: IV 200 / 200 200 / 200 Zosyn 4.5 GM Premix 4.5 gm In 200 / 200 200 / 200 100 ml @ 200 mls/hr IV.SIG Q6H [facility] Rx#:[id number] Output: Urine 550 / 550 Other: Date of Last Bowel Movement 02/03/18 02/03/18 - Constitutional no acute distress - Routine HEENT Exam Head: Present: normocephalic - Routine Respiratory Exam Present: CTA bilaterally - Routine Cardiovascular Exam Present: RRR - Routine Abdominal Exam Present: soft, normoactive bowel sounds. Absent: tenderness, distended - Routine Neurological Exam Present: alert, oriented X3 - Urinary Catheter Management Indwelling Urethral Catheter Cath placed during this visit: yes, but has since been removed by the nurse Reason for continuing: Decision to DC catheter Insertion date: 02/03/18 Removal date: 02/04/18 Removal time: 08:15 Condom Cath placed during this visit: no Results - Labs CBC & Chem 7: 02/07/18 05:31 02/07/18 11:51 Laboratory Results - last 24 hr 02/06/18 02/06/18 02/07/18 18:02 21:52 00:48 WBC RBC Hgb Hct MCV MCH MCHC RDW Plt Count MPV Neut % (Auto) Lymph % (Auto) [place] % (Auto) Eos % (Auto) Baso % (Auto) Neut # (Auto) Lymph # (Auto) [place] # (Auto) Eos # (Auto) Baso # (Auto) WBC Differential Differential Comment Sodium Potassium Chloride Carbon Dioxide Anion Gap BUN Creatinine Estimated GFR POC Glucose 106 89 97 Random Glucose Calcium Phosphorus Magnesium Total Bilirubin AST ALT Alkaline Phosphatase Total Protein Albumin Vancomycin Trough 02/07/18 02/07/18 02/07/18 03:19 05:31 05:31 WBC 9.3 RBC 2.98 L Hgb 9.5 L Hct 27.6 L MCV 92.7 MCH 31.8 MCHC 34.3 RDW 13.3 Plt Count 328 MPV 8.2 Neut % (Auto) 74.3 H Lymph % (Auto) 21.0 [place] % (Auto) 3.9 Eos % (Auto) 0.5 Baso % (Auto) 0.3 Neut # (Auto) 6.9 Lymph # (Auto) 2.0 [place] # (Auto) 0.4 Eos # (Auto) 0.0 Baso # (Auto) 0.0 WBC Differential . Differential Comment Auto diff final Sodium Potassium Chloride Carbon Dioxide Anion Gap BUN Creatinine 0.80 Estimated GFR Greater than 89 POC Glucose 83 Random Glucose Calcium Phosphorus Magnesium Total Bilirubin AST ALT Alkaline Phosphatase Total Protein Albumin Vancomycin Trough 02/07/18 02/07/18 02/07/18 08:28 11:51 11:51 WBC RBC Hgb Hct MCV MCH MCHC RDW Plt Count MPV Neut % (Auto) Lymph % (Auto) [place] % (Auto) Eos % (Auto) Baso % (Auto) Neut # (Auto) Lymph # (Auto) [place] # (Auto) Eos # (Auto) Baso # (Auto) WBC Differential Differential Comment Sodium 142 Potassium 3.5 Chloride 108 H Carbon Dioxide 14.5 L D Anion Gap 20 H BUN 7 Creatinine 0.95 Estimated GFR 79 L POC Glucose 110 Random Glucose 110 H Calcium 8.4 L Phosphorus 2.9 Magnesium 1.7 Total Bilirubin 0.5 AST 19 ALT 15 Alkaline Phosphatase 91 Total Protein 7.0 Albumin 2.5 L Vancomycin Trough 21.1 H 02/07/18 13:04 WBC RBC Hgb Hct MCV MCH MCHC RDW Plt Count MPV Neut % (Auto) Lymph % (Auto) [place] % (Auto) Eos % (Auto) Baso % (Auto) Neut # (Auto) Lymph # (Auto) [place] # (Auto) Eos # (Auto) Baso # (Auto) WBC Differential Differential Comment Sodium Potassium Chloride Carbon Dioxide Anion Gap BUN Creatinine Estimated GFR POC Glucose 110 Random Glucose Calcium Phosphorus Magnesium Total Bilirubin AST ALT Alkaline Phosphatase Total Protein Albumin Vancomycin Trough Assessment and Plan - Plan Intractable nausea and vomiting /gastroparesis CT showed fecal impaction S/P EGD on 02/05/18 1. The esophagus appeared normal 2. Food residue in the entire examined stomach, suspect Gastroperesis 3. There was mild antral gastropathy noted [T2] 4. Normal duodenal mucosa in the entire duodenum 5. Retroflexed views revealed viewing impaired by retained food Plan Clear liquids advance as tolerated Cont Reglan cont Protonix f/u with GI upon discharge Gi will sign off She was seen per myself and Dr. Goel
[2018-02-07] MEDS ORDERED: Vancomycin Inj 1,250 MG in Sodium Chlor 0.9% Inj 250 ML IV.SIG SCH (18:00)
--- NOTE | 2018-02-07 23:02 | P.PNIM ---
Subjective Interval history: Follow up for gastroparesis, sinus tachycardia, resolved sepsis. Patient is currently doing well. No acute concerns. No fever, chills. He is sitting in his chair this morning. Brother at bedside. No chest pain, SOB. Physical Exam Vital signs: Last Vital Signs Temp 98.4 F 02/07/18 20:00 Pulse 124 H 02/07/18 20:00 Resp 20 02/07/18 20:00 BP 133/64 02/07/18 20:00 Pulse Ox 99 02/07/18 20:00 Intake & Output 02/05/18 02/06/18 02/07/18 02/08/18 06:59 06:59 06:59 06:59 Intake Total 3315 / 3315 2830 / 2830 400 / 400 2901 / 2901 Output Total 2600 / 2600 3250 / 3250 550 / 550 2800 / 2800 Balance 715 / 715 -420 / -420 -150 / -150 101 / 101 Weight 78.7 kg 75.5 kg 80.8 kg GENERAL: Alert, NAD. SKIN: Warm and dry. HEAD: Normocephalic. EYES: No scleral icterus. No injection or drainage. NECK: Supple, trachea midline. No JVD or lymphadenopathy. CARDIOVASCULAR: Regular rate and rhythm without murmurs, gallops, or rubs. RESPIRATORY: Moderate air entry. No accessory muscle use. GASTROINTESTINAL: Abdomen soft, non-tender, nondistended. MUSCULOSKELETAL: No cyanosis, or edema. BACK: Nontender without obvious deformity. No CVA tenderness. Urinary Catheter Management Indwelling Urethral Catheter: Cath placed during this visit: yes, but has since been removed by the nurse Insertion date: 02/03/18 Removal date: 02/04/18 Removal time: 08:15 Condom: Cath placed during this visit: no Results Labs CBC & Chem 7: 02/07/18 05:31 02/07/18 11:51 Assessment and Plan Plan Mr. Gregory is a pleasant 67 male who was brought via EVAC for vomiting to freestanding emergency department at [place]. According to EVAC, the patient's brother called because patient has been having vomiting for 3days. When EVAC arrived in the patient was on bed, with low oxygen saturation, they put him on CPAP and brought into the ER. On arrival to the ER the patient was AMS, unable to give any history, no family at the bedside to give any information. The patient was intubated for airway protection by ED attending, the central line was placed into the femoral vein and the patient was started on IV fluid bolus resuscitation as well as antibiotics. CT brain yesterday showed no acute findings. EGD shows gastroparesis. Acute respiratory failure Left sided pneumonia -Patient was on Vancomycin and Zosyn. -Given EGD findings of food impaction, aspiration pneumonia is a likely possibility -Will d/c Vancomycin and continue Zosyn for now. We may switch to Augemtin PO. Gastroparesis -GI evaluated patient and started on clear liquid diet -Continue Reglan IV for now. Will switch to PO tomorrow. -Will advance diet tomorrow as well. Speech to eval patient. Sinus tachycardia -Likely due to volume depletion -Will give patient 500mL NS bolus then 100cc/hour. -EKG shows sinus tach as well. Full code. Ambulation. Will consider re-starting heparin SQ for DVT prophylaxis. Progress Note: Quality VTE Deep Vein Thrombosis/Pulmonary Embolism Present on Admission: No
[2018-02-08] MEDS: Oral Hygiene Kit OROPHARYNG SCH ×4 (01:14→16:29)
[2018-02-08] MEDS: Insulin NovoLIN Regular Correctional Sugar Inj SQ SCH ×6 (02:19→21:09)
[2018-02-08] MEDS: Piperacil/Tazo 4.5 GM Premix 4.5 GM/100 ML BAG IV.SIG SCH ×4 (02:19→21:16)
[2018-02-08] MEDS: Chlorhexidine Gluconate 2% 1 Pack (2 Cloths) TOPICAL SCH (05:34)
[2018-02-08] MEDS: Chlorhexidine 0.12% Oral Kit 15 ML UDC OROPHARYNG SCH ×2 (09:49→21:10)
[2018-02-08] MEDS: Sod Chloride 0.9% Inj 1,000 ML IV.CONT SCH ×3 (09:49→21:11)
[2018-02-08] MEDS: Senna/Docusate Sodium 8.6/50 MG Tablet PO SCH ×2 (09:53→21:09)
[2018-02-08] MEDS: Pantoprazole Inj 40 MG Vial IV.PUSH SCH (16:19)
--- NOTE | 2018-02-08 21:46 | P.PNIM ---
Subjective Interval history: Follow up for gastroparesis, sinus tachycardia, resolved sepsis. Patient is doing well. No fever, chills. Tolerating liquid diet. Physical Exam Vital signs: Last Vital Signs Temp 98.4 F 02/08/18 20:00 Pulse 111 H 02/08/18 20:00 Resp 20 02/08/18 20:00 BP 139/73 02/08/18 20:00 Pulse Ox 95 02/08/18 20:00 Intake & Output 02/06/18 02/07/18 02/08/18 02/09/18 06:59 06:59 06:59 06:59 Intake Total 2830 / 2830 400 / 400 3683.5 / 3683.5 2157 Output Total 3250 / 3250 550 / 550 2800 / 2800 Balance -420 / -420 -150 / -150 883.5 / 883.5 2157 Weight 75.5 kg 80.8 kg GENERAL: Alert, NAD. SKIN: Warm and dry. HEAD: Normocephalic. EYES: No scleral icterus. No injection or drainage. NECK: Supple, trachea midline. No JVD or lymphadenopathy. CARDIOVASCULAR: Regular rate and rhythm without murmurs, gallops, or rubs. RESPIRATORY: Moderate air entry. No appreciable wheezing noted. GASTROINTESTINAL: Abdomen soft, non-tender, nondistended. MUSCULOSKELETAL: No cyanosis, or edema. BACK: Nontender without obvious deformity. No CVA tenderness. Urinary Catheter Management Indwelling Urethral Catheter: Cath placed during this visit: yes, but has since been removed by the nurse Insertion date: 02/03/18 Removal date: 02/04/18 Removal time: 08:15 Condom: Cath placed during this visit: no Results Labs CBC & Chem 7: 02/07/18 05:31 02/07/18 11:51 Assessment and Plan Plan Mr. Gregory is a pleasant 67 male who was brought via EVAC for vomiting to freestanding emergency department at [place]. According to EVAC, the patient's brother called because patient has been having vomiting for 3days. When EVAC arrived in the patient was on bed, with low oxygen saturation, they put him on CPAP and brought into the ER. On arrival to the ER the patient was AMS, unable to give any history, no family at the bedside to give any information. The patient was intubated for airway protection by ED attending, the central line was placed into the femoral vein and the patient was started on IV fluid bolus resuscitation as well as antibiotics. CT brain yesterday showed no acute findings. EGD shows gastroparesis. Acute respiratory failure Left sided pneumonia -Patient was on Vancomycin and Zosyn. -Given EGD findings of food impaction, aspiration pneumonia is a likely possibility -Will switch to PO Augmentin for 3 more days. Gastroparesis -GI evaluated patient and started on clear liquid diet. Advance to diabetic diet tomorrow. -Continue Reglan IV for now. Will consider switching to PO Reglan -Will advance diet tomorrow as well. Speech to eval. Sinus tachycardia -Improved. Continue IV fluid. Full code. Ambulation. Discharge Plan: PT recommends rehab. Discussed with CM. Progress Note: Quality VTE Deep Vein Thrombosis/Pulmonary Embolism Present on Admission: No
[2018-02-09] MEDS: Insulin NovoLIN Regular Correctional Sugar Inj SQ SCH ×7 (02:45→20:53)
[2018-02-09] MEDS: Oral Hygiene Kit OROPHARYNG SCH ×4 (02:46→16:22)
[2018-02-09] MEDS ORDERED: Pharmacy Ordered Lab Info OTHER ONE (05:45)
[2018-02-09] MEDS: Sod Chloride 0.9% Inj 1,000 ML IV.CONT SCH ×3 (06:51→23:13)
[2018-02-09] MEDS: Senna/Docusate Sodium 8.6/50 MG Tablet PO SCH ×2 (09:10→21:48)
[2018-02-09] MEDS: Amoxicillin/Clavulanate 875/125 MG Tablet PO SCH ×2 (09:10→21:48)
[2018-02-09 11:43] LABS: Vancomycin,Trough 5.3 mcg/mL (5.0-10.0)
[2018-02-09] MEDS: Metoclopramide 10 MG Tablet PO SCH ×2 (16:21→21:49)
--- NOTE | 2018-02-09 20:50 | P.PNIM ---
Subjective Interval history: Follow up for gastroparesis, sinus tachycardia, resolved sepsis. Patient is doing well. No acute concerns. Later in the day, he had a BM. No fever/chills. Physical Exam Vital signs: Last Vital Signs Temp 98.7 F 02/09/18 20:00 Pulse 108 H 02/09/18 20:00 Resp 18 02/09/18 20:00 BP 148/70 H 02/09/18 20:00 Pulse Ox 95 02/09/18 20:00 Intake & Output 02/07/18 02/08/18 02/09/18 02/10/18 06:59 06:59 06:59 06:59 Intake Total 400 / 400 3683.5 / 3683.5 2258 / 2258 1000 / 1000 Output Total 550 / 550 2800 / 2800 Balance -150 / -150 883.5 / 883.5 2258 / 2258 1000 / 1000 Weight 80.8 kg GENERAL: Alert, NAD. SKIN: Warm and dry. HEAD: Normocephalic. EYES: No scleral icterus. No injection or drainage. NECK: Supple, trachea midline. No JVD or lymphadenopathy. CARDIOVASCULAR: Regular rhythm, tachycardic without murmurs, gallops, or rubs. RESPIRATORY: Breath sounds equal bilaterally. No accessory muscle use. GASTROINTESTINAL: Abdomen soft, non-tender, nondistended. MUSCULOSKELETAL: No cyanosis, or edema. BACK: Nontender without obvious deformity. No CVA tenderness. Urinary Catheter Management Indwelling Urethral Catheter: Cath placed during this visit: yes, but has since been removed by the nurse Insertion date: 02/03/18 Removal date: 02/04/18 Removal time: 08:15 Condom: Cath placed during this visit: no Results Labs CBC & Chem 7: 02/07/18 05:31 02/09/18 10:55 Assessment and Plan Plan Mr. Gregory is a pleasant 67 male who was brought via EVAC for vomiting to freestanding emergency department at [place]. According to EVAC, the patient's brother called because patient has been having vomiting for 3days. When EVAC arrived in the patient was on bed, with low oxygen saturation, they put him on CPAP and brought into the ER. On arrival to the ER the patient was AMS, unable to give any history, no family at the bedside to give any information. The patient was intubated for airway protection by ED attending, the central line was placed into the femoral vein and the patient was started on IV fluid bolus resuscitation as well as antibiotics. CT brain yesterday showed no acute findings. EGD shows gastroparesis. Acute respiratory failure Left sided pneumonia -Patient was on Vancomycin and Zosyn. -Given EGD findings of food impaction, aspiration pneumonia is a likely possibility -Continue Augmentin for 3 more days. Gastroparesis -Will advance diet. -Switch IV to PO Reglan Sinus tachycardia -Improved. Continue IV fluid. Full code. Ambulation. Discharge Plan: Likely d/c to SNF tomorrow. Progress Note: Quality VTE Deep Vein Thrombosis/Pulmonary Embolism Present on Admission: No
[2018-02-09] MEDS: Metoprolol Tartrate 25 MG Tablet PO SCH (21:48)
[2018-02-10] MEDS: Oral Hygiene Kit OROPHARYNG SCH ×3 (00:11→12:20)
[2018-02-10] MEDS: Insulin NovoLIN Regular Correctional Sugar Inj SQ SCH ×4 (00:13→12:20)
[2018-02-10] MEDS ORDERED: Levothyroxine 88 MCG Tablet PO SCH (06:00)
[2018-02-10] MEDS: Metoprolol Tartrate 25 MG Tablet PO SCH (08:53)
[2018-02-10] MEDS: Senna/Docusate Sodium 8.6/50 MG Tablet PO SCH (08:53)
[2018-02-10] MEDS: Amoxicillin/Clavulanate 875/125 MG Tablet PO SCH (08:53)
[2018-02-10] MEDS: Metoclopramide 10 MG Tablet PO SCH ×2 (08:55→12:20)
--- NOTE | 2018-02-10 09:45 | P.DS ---
DS: Providers Date of admission: 02/03/18 04:00 Primary care physician: UNKNOWN Consults: 02/03/18 14:31 Consult to Gastroenterology Routine Consulting Provider: Paola Turner Reason for Consultation: ? GI bleed, anemia Notified:: Service Spoke with:: CANDELARIA Date Notified:: 02/03/18 Time Notified:: 14:39 Ordering Provider: CASSANDRA 02/06/18 10:36 Consult to Hospitalist Routine Consulting Provider: Catarino Ordoñez Reason for Consultation: Assume care in am 02/07/18 Notified:: Service Spoke with:: SID Date Notified:: 02/06/18 Time Notified:: 10:43 Comments:: Ordering Provider: PERI Brief History from admission: 67 unfortunate male who was brought via [facility] for vomiting to freestanding emergency department at [facility]. According to [facility], the patient's brother called because patient has been having vomiting for the last 3days. When [facility] arrived in the patient was on bed, with low oxygen saturation, they put him on CPAP and brought into the ER. On arrival to the ER the patient was AMS, unable to give any history, no family at the bedside to give any information. The patient was intubated for airway protection by ED attending, the central line was placed into the femoral vein and the patient was started on IV fluid bolus resuscitation as well as antibiotics. He is being transferred to [facility] for higher level of care and critical care management. DS: Summary Time Spent with Patient Total time spent providing and/or coordinating discharge services: Quality: VTE Deep Vein Thrombosis/Pulmonary Embolism Present on Admission: No Results Completed studies during hospitalization: Pending at discharge 02/05/18 07:45 Surgical [PTH] Routine Labs on day of discharge: Labs from last 24 hours 02/10/18 02/10/18 02/09/18 07:49 05:39 20:52 Creatinine Estimated GFR POC Glucose 109 108 126 H Vancomycin Trough 02/09/18 02/09/18 02/09/18 16:11 11:01 10:55 Creatinine 0.96 Estimated GFR 78 L POC Glucose 154 H 215 H Vancomycin Trough 5.3 Impressions ITS Impressions Abdomen/Bladder Ultrasound 02/03/18 00:00 CONCLUSION: 1. Bilateral renal cortical thinning with increased echogenicity characteristic of chronic renal disease. 2. No evidence of hydronephrosis or mass. Abdomen/Pelvis CT 02/03/18 08:04 CONCLUSION: 1. Dense consolidation of the left lower lobe 2. Rectal fecal impaction with rectal wall thickening 3. Bowling catheter and right femoral central venous catheter noted in place. 4. No evidence of obstruction. Head CT 02/03/18 08:04 CONCLUSION: 1. White matter hypodensity most characteristic of chronic ischemic white matter disease. 2. No evidence of acute infarct, hemorrhage, mass or edema. . Chest CT 02/03/18 08:05 CONCLUSION: 1. Dense consolidating airspace disease in the left lower lobe with minimal patchy airspace disease in the upper lobes. 2. Moderate coronary artery calcification. 3. Tip of endotracheal tube at the level the ken. 4. Tip of nasogastric tube in the gastric antrum. Chest X-Ray 02/05/18 13:49 CONCLUSION: Persistent left basilar airspace disease Otherwise stable chest status post extubation. Discharge Plan Discharge Disposition Patient Disposition: Discharge to SNF Discharge Condition Condition: Good Discharge Order Discharge Orders: Discharge Order (Routine); Ordered 02/10/18 Ordered By: Selvin Wyatt Discharge Details Anticipated Discharge Date: 02/09/18 Physicians Team Primary Care Provider: UNKNOWN, Attending Provider: Selvin Wyatt Other Providers: Paola Turner Rxs /Orders / Referrals /Forms Prescriptions: New amoxicillin-pot clavulanate 875-125 mg Tablet 1 tab PO Q12HR Qty: 6 RF: 0 metoprolol tartrate 25 mg Tablet 25 mg PO BID Qty: 60 RF: 0 amlodipine 5 mg tablet 5 mg PO DAILY Qty: 30 RF: 0 rosuvastatin 10 mg tablet 10 mg PO DAILY Qty: 30 RF: 0 metoclopramide HCl 10 mg Tablet 10 mg PO ACHS Qty: 120 RF: 0 Continue clozapine [Clozaril] 100 mg Tablet 100 mg PO BID RF: 0 paroxetine HCl 10 mg Tablet 10 mg PO DAILY RF: 0 omeprazole 40 mg Capsule,Delayed Release(Dr/Ec) 40 mg PO DAILY RF: 0 levothyroxine 88 mcg Tablet 88 mcg PO DAILY RF: 0 metformin 750 mg Tablet Extended Release 24 Hr 750 mg PO BID RF: 0 paliperidone [Invega] 3 mg Tablet Extended Release 24hr 3 mg PO QAM RF: 0 lamotrigine [Lamictal XR] 50 mg Tablet Extended Release 24hr 50 mg PO DAILY RF: 0 Discontinued simvastatin 40 mg Tablet 40 mg PO QPM RF: 0 lisinopril 2.5 mg Tablet 2.5 mg PO DAILY RF: 0 metoprolol tartrate 25 mg Tablet 25 mg PO DAILY RF: 0 Referrals: UNKNOWN, [Primary Care Provider] - See Instructions (Primary care provider or SNF provider within 5-7 days) Status ED Status: Admitted Patient
[2018-02-10] MEDS: Sod Chloride 0.9% Inj 1,000 ML IV.CONT SCH (09:56)
[2018-02-10 19:42] VITALS: BP 137/64; PULSE 91; RESP 18; TEMP 98.1; O2SAT 94
== END 2018-02-10 13:59 ==
LOC: NEDDLT 00:01 → HIMC 04:00 → N05 02-06 15:15
PROVIDERS: ADMIT Hospitalist; ATTEND Hospitalist
PROC: PANENDO (2018-02-05 11:35)